=== PATIENT | female | born 2000 | race Caucasian/White ===

== ENCOUNTER 2025-02-14 | Day surgery (SDC) | payer BC, SELFPAY ==
[2025-02-12 15:26] VITALS: BMI 27.0
--- NOTE | 2025-02-12 15:34 | PC.NURSE ---
Report to the Outpatient Waiting Room, entrance under the green pavilion located off [facility], at time _1130_ on date _[phone]_. Planned Procedure Time: _130pm_.? Time changes happen often and if your time is changed the preop area will call you the afternoon before. - You and your visitor will be asked to self-screen and do not enter if you have any COVID symptoms. Please call surgeon if you need to reschedule. - A mask is optional within the hospital at this time. Patients may have clear liquids (water, carbonated beverages, clear teas, apple juice) until 3 hours prior to surgery with a maximum of 20 ounces. - No food from midnight until time of surgery and no smoking, or chewing tobacco (or any form of nicotine). No chewing gum, candy or mints. Take only the following medications with a SIP of water on the morning of surgery: ___BC pill DO NOT STOP ANY OF YOUR OTHER PRESCRIPTION MEDICATIONS PRIOR TO SURGERY EXCEPT THE FOLLOWING Hold all vitamins and supplements for 3 days per anesthesiologist. Medications to discontinue per physician Date to take last dose Please no make-up, nail comoran, hairspray, perfume, deodorant, or body powder the day of surgery.? No jewelry (including any body piercings) or valuables the day of surgery, leave them at home.? Please take a shower or bath the night before, or the morning of, surgery with an antibacterial soap.? Wear comfortable, loose fitting clothing.? - Jewelry must be removed prior to entering the operating room.? Rings and piercings that are not removed may be cut off. - The hospital will not accept responsibility for valuables.? - Please leave all valuables, including medications, at home the day of surgery. If you are going home after surgery, a licensed limousine driver must drive you home.? - NO public transportation without another adult if you receive anesthesia. - We recommend that an adult stay with you for 24 hours following discharge. - We also recommend that you do not drive, make important decision, drink alcoholic beverages, or take any drugs that were not prescribed by your health care provider for at least 24 hours after your discharge time. Follow any additional instructions given to you from your surgeon. Telephone instructions given to __Ninfa___and asked if any additional questions and then verbalized understanding. Patient advised to call surgeon office or pre surgery nurse liaison [phone] if any additional questions.
[2025-02-14] VITALS (9 sets, daily range): BP systolic 110–139; BP diastolic 67–82; PULSE 65–78; RESP 14–18; TEMP 36.4–36.7; O2SAT 94–100; BMI 26.9
--- OUTSIDE RECORDS SUMMARY | 2025-02-14 00:03 | XMS_ITS | Referral Summary ---
Author Organization [facility] [address] Address [address] [place] [address] Phone Care Team Providers Care Paster Hat Lining Name Role Phone No, Physician Unavailable Mckenzie Fishman NP Primary Care Provider [phone] Encounters Date Type Department Care Team Description 02/07/2025 Nurse Triage [facility] [address] [address] Mckenzie Fishman NP 01/02/2025 8:00 AM CDT Office Visit [facility] Care at [address] [place] [address] Ranjana Corona NP Acute bacterial pharyngitis (Primary Dx); Sore throat 01/01/2025 8:30 AM CDT Office Visit [facility] [address] [address] Marco Beckman MD Attention deficit hyperactivity disorder (ADHD), predominantly inattentive type (Primary Dx); Moderate episode of recurrent major depressive disorder (HCC); LUIS EDUARDO (generalized anxiety disorder); Migraine without aura and without status migrainosus, not intractable 12/19/2024 Results Follow-Up [facility] [address] [address] Alida Jean NP US Breast Right Limited 12/18/2024 3:13 PM CDT - 12/18/2024 11:59 PM CDT Hospital Encounter [facility] [address] [place] [address] Lump in upper inner quadrant of right breast Discharge Disposition: Discharge to home or self care 12/03/2024 2:00 PM CDT Office Visit [facility] [address] [address] Alida Jean NP Lump in upper inner quadrant of right breast (Primary Dx); Weight loss counseling, encounter for; Overweight (BMI 25.0-29.9) 12/02/2024 Nurse Triage [facility] [address] [address] Mckenzie Fishman NP from Last 3 Months Allergies No known active allergies Medications rizatriptan (MAXALT) 10 mg tabletIndications :Migraine Take 1 tablet (10 mg total) by mouth once as needed for migraine May repeat in 2 hours if unresolved. Do not exceed 30 mg in 24 hours. 9 tablet 1 3 Active buPROPion SR (WELLBUTRIN SR) 200 mg 12 hr tablet Take 1 tablet (200 mg total) by mouth every morning 4 Active escitalopram (LEXAPRO) 10 mg tablet Take 1 tablet (10 mg total) by mouth every morning 4 Active propranoloL (INDERAL) 10 mg tablet Take 1 tablet (10 mg total) by mouth as needed 4 Active traZODone (DESYREL) 50 mg tablet Take 1 tablet (50 mg total) by mouth as needed for sleep Active norethindrone-eth inyl estradiol-iron (Loestrin Fe 1.530, 28-Day,) 1.5 mg-30 mcg per tablet Take 1 tablet by mouth daily 5 Active lisdexamfetamine (VYVANSE) 20 mg capsuleIndication s:Attention-Defic it Hyperactivity Disorder Take 1 capsule (20 mg total) by mouth every morning for 14 days 14 capsule 5 02/21/20 25 Active lisdexamfetamine (VYVANSE) 20 mg capsuleIndication s:Attention-Defic it Hyperactivity Disorder Take 1 capsule (20 mg total) by mouth every morning for 14 days 14 capsule 5 01/23/20 25 Discontin ued(Reord er) lisdexamfetamine (VYVANSE) 20 mg capsuleIndication s:Attention-Defic it Hyperactivity Disorder Take 1 capsule (20 mg total) by mouth every morning for 14 days 14 capsule 5 02/07/20 25 Discontin ued(Reord er) Active Problems Problem Noted Date Diagnosed Date Attention deficit hyperactiv ity disorder (ADHD), predominantly inattentive type 01/01/2025 Assessment & Plan (01/01/2025 10:54 AM CDT): Not well controlled; patient has multiple signs and symptoms consistent with ADHD; patient reports prior diagnosis main; no relief with prior treatments including nonstimulant therapies Will give trial of Vyvanse 20 mg daily; given underlying anxiety, will start at low dose and advanced as tolerated Overweight (BMI 25.0-29.9) 12/03/2024 Assessment & Plan (12/03/2024 2:16 PM CDT): Encouraged heart healthy diet and lifestyle. Advised 150 min/week of aerobic exercise. Lump in upper inner quadrant of right breast 03/2025 Assessment & Plan (12/03/2024 2:16 PM CDT): Will get diagnostic mammogram further evaluate lump in breast and ensure no concerns. Will get CBC to ensure no infection noted. Orders: CBC with auto differential; Future Comprehensive metabolic panel; Future DIAGNOSTIC MAMMOGRAM BILATERAL W UZMA; Future LUIS EDUARDO (generalized anxiety disorder) 06/25/2024 Assessment & Plan (01/01/2025 10:55 AM CDT): Not well controlled; feeling more anxious; unclear if due to ADHD versus underlying anxiety disorder Continue bupropion 100 mg daily, Lexapro 10 mg daily, start Vyvanse 20 mg daily; continue propranolol 10 mg p.r.n. Assessment & Plan (06/25/2024 9:07 AM CDT): Stable, well controlled; follows with Psychiatry; treatment as above Moderate episode of recurrent major depressive d isorder 06/25/2024 Assessment & Plan (01/01/2025 10:54 AM CDT): Not well controlled; patient reports low motivation and sensation of burnout No relief with current medications Will start Vyvanse to help with focus and concentration which may help improve burnout as patient will be able to complete job task appropriately Continue bupropion 200 mg daily, decrease Lexapro to 10 mg daily Assessment & Plan (06/25/2024 9:07 AM CDT): Stable, well controlled; follows with psychiatry for management Continue bupropion 300 mg daily, Lexapro 15 mg daily Migraine without aura and wi thout status migrainosus, not intractable 02/06/2023 Assessment & Plan (01/01/2025 10:55 AM CDT): Not well controlled patient reports increased frequency of migraines, may be stress-induced Will continue to monitor Continue rizatriptan 10 mg p.r.n. Assessment & Plan (06/25/2024 9:07 AM CDT): Not well controlled; patient reports migraines occur at least twice per week; does not miss work; but unable to take relieving medications due to excess sedation; has not tolerated topiramate due to worsening depression with medication Will start Nurtec p.r.n. for migraines; if has improvement, may increase to every other day for prevention Assessment & Plan (02/06/2023 8:13 AM CDT): Maxalt 10 mg as needed for migraine Patient having severe headaches daily lasting approximately 2 hours each States these started about 1.5 weeks ago Patient states she stopped about 2 weeks ago She is 3 months Patient to follow-up if medication not helping Physical exam 02/06/2023 Assessment & Plan (02/06/2023 8:14 AM CDT): Pleasant 22-year-old female presents to establish care with new PCP. She states she is not been seen in [facility] . States last time she was seen she was still seeing a currency exchange specialist. She she is currently 3 months with a baby girl. CBC, CMP, A1c, lipid, TSH ordered. Patient will get her labs drawn today. We will call with results. Follow up as needed Resolved Problems Problem Noted Date Diagnosed Date Resolved Date Visit for screening 10/21/2022 02/06/2023 Strep pharyngitis 08/23/2021 02/06/2023 Abdominal pain 04/20/2015 02/06/2023 Failure to gain weight in pediatric patient 04/20/2015 02/06/2023 Lumbago 09/17/2014 02/06/2023 Strain of neck muscle 09/17/20142022 Immunizations Immunization Administration Dates Next Due DTaP 08/04/2003, 1,1999,10/18,1999 Influenza, Quadrivalent, Spl it, Preservative Free, Intramuscular 06/21/2019 Influenza, Trivalent, IM (MDV) 06/11/2013 Influenza, Unspecified 12/03/2024(Deferr ed: Patient Refused),06/25/2024(Deferred: Patient Refused),04/28/2024(Deferred: Patient Refused) MMR 02/26/2004,11/08/2000 Tdap 10/28/2022,07/28/2012 Social History Tobacco Use Types Packs/Day Years Used Date Smoking Tobacco: Former Cigarettes Vaping Smokeless Tobacco: Never Tobacco Cessation:Counseling Given: Not Answered [facility] Utilities Answer Date Recorded In the past 12 months has [employer], [employer], or water [place] threatened to shut off services in your home? No 06/25/2024 Humiliation, Afraid, Rape, and Kick questionnair e Answer Date Recorded Within the last year, have y ou been afraid of your partner or ex-partner? No 06/25/2024 Within the last year, have y ou been humiliated or emotionally abused in other ways by your partner or ex-partner? No Within the last year, have y ou been kicked, hit, slapped, or otherwise physically hurt by your partner or ex-partner? No 06/25/2024 Within the last year, have y ou been raped or forced to have any kind of sexual activity by your partner or ex-partner? No 06/25/2024 Social Connection and Isolation Panel [NHANES] A nswer Date Recorded In a typical week, how many times do you talk on the phone with family, friends, or neighbors? Once a week 06/25/2024 How often do you get together with friends or re latives? Once a week 06/25/2024 How often do you attend quaker or yarsani serv ices? Never 06/25/2024 Do you belong to any clubs o r organizations such as quaker groups, unions, fraternal or athletic groups, or school groups? No 06/25/2024 How often do you attend meet ings of the clubs or organizations you belong to? Never 06/25/2024 Are you , , di vorced, , never , or living with a partner? 06/25/2024 AUDIT-C Answer Date Recorded Q1: How often do you have a drink containing alc ohol? Monthly or less 06/25/2024 Q2: How many drinks containi ng alcohol do you have on a typical day when you are drinking? 3 or 4 06/25/2024 Q3: How often do you have si x or more drinks on one occasion? Never 06/25/2024 Overall Financial Resource Strain (CARDIA) Answe r Date Recorded How hard is it for you to pa y for the very basics like food, housing, medical care, and heating? Not hard at all 06/25/2024 PHQ-2 Answer Date Recorded PHQ-2 Total Score (If total score is 3 or more points, staff should administer the PHQ-9) 0 12/03/2024 [facility] of Occupat ional Health - Occupational Stress Questionnaire Answer Date Recorded Do you feel stress - tense, restless, nervous, or anxious, or unable to sleep at night because your mind is troubled all the time - these days? Very much 06/25/2024 Exercise Vital Sign Answer Date Recorde d On average, how many days pe r week do you engage in moderate to strenuous exercise (like a brisk walk)? 3 days 06/25/2024 On average, how many minutes do you engage in exercise at this level? 60 min 06/25/2024 Hunger Vital Sign Answer Date Recorded Within the past 12 months, y ou worried that your food would run out before you got the money to buy more. Never true 06/25/20 24 Within the past 12 months, t he food you bought just didn't last and you didn't have money to get more. Never true 06/25/2024 PRAPARE - Transportation Answer Date Re corded In the past 12 months, has l ack of transportation kept you from medical appointments or from getting medications? No 05/29 In the past 12 months, has l ack of transportation kept you from meetings, work, or from getting things needed for daily living? No 06/25/2024 PHQ-9 Answer Date Recorded PHQ-9 Total Score 3 06/25/2024 Housing Stability Vital Sign Answer Harpreet e Recorded In the last 12 months, was t here a time when you were not able to pay the mortgage or rent on time? No 06/25/2024 In the past 12 months, how m any times have you moved where you were living? 0 06/25/2024 At any time in the past 12 m [facility], were you homeless or living in a skilled nursing (including now)? No 06/25/2024 Personal Safety Answer Date Recorded Have you ever been in or are you currently in a harmful physical or emotional relationship or is someone making you feel afraid or unsafe? Denies 08/13/2024 Comments No Sex and Gender Information Value Date Recorded Sex Assigned at Not on file Legal Sex Female 12:44 AM [employer]OT [employer] Gender Identity Not on file Sexual Orientation Not on file Last Filed Vital Signs Vital Sign Reading Time Taken Comments Blood Pressure 108/60 01/02/2025 8:09 AM CDT Pulse 88 01/02/2025 8:09 AM CDT Temperature 36.6 C (97.9 F) 01/02/2025 8:09 AM CDT Respiratory Rate 20 01/02/2025 8:09 AM CDT Oxygen Saturation 98% 01/02/2025 8:09 AM CDT Inhaled Oxygen Concentration - - Weight 73.9 kg (163 lb) 01/02/2025 8:09 AM CDT Height 165.1 cm (5' 5) 01/02/2025 8:09 AM CDT Body Mass Index 27.12 01/02/2025 8:09 AM CDT Plan of Treatment Not on file Procedures Procedure Name Priority Date/Time Associated Diagnosis Comments POCT RAPID STREP Routine 01/02/2025 8:22 AM CDT Sore throat US BREAST RIGHT LIMITED Schedule Routine, Read Routine (OP Routine) 12/18/2024 3:33 PM CDT Lump in upper inner quadrant of right breast HEPATITIS C ANTIBODY Routine 06/25/2024 8:52 AM CDT Encounter for hepatitis C screening test for low risk patient from Last 3 Months or Most Recently Relevant to Health Maintenance Results * POCT rapid strep A (01/02/2025 8:22 AM CDT) Rapid Strep A, POC Negative Negative Swab 01/02/2025 8:22 AM CDT Ranjana Corona NP POINT OF CARE TEST ORDERABLES Final Result * US Breast Right Limited (12/18/2024 3:33 PM CDT) Anatomical Region Laterality Modality Breast Right Ultrasound 12/18/2024 3:39 PM CDT Impressions 12/18/2024 3:39 PM CDT No imaging findings to suggest malignancy are seen. Negative for inconclusive breast imaging studies should not deter biopsy if there are clinically suspicious palpable abnormalities. The patient may have mammography as per ACR guidelines. OVERALL FINAL ASSESSMENT: BI-RADS Category 1: Negative. Electronically signed by: Monica Denson M.D. Narrative 12/18/2024 3:39 PM CDT EXAMINATION: LIMITED RIGHT BREAST ULTRASOUND HISTORY: Previous palpable abnormality. Patient can no longer palpate. COMPARISON: None TECHNIQUE: Directed ultrasound evaluation of the RIGHT breast was performed. ULTRASOUND FINDINGS: In the area described as previously palpable by the patient, no cystic or solid masses are seen. Alida Jean EDUCATION AND OUTREACH COORDINATOR IMG MAMMO PROCEDURES Final Re sult * Hepatitis C antibody Blood (06/25/2024 8:52 AM CDT) Hep C Ab Nonreactive Nonreactive Comment: Interpretive Data Nonreactive: Antibodies to HCV not detected. Does NOT exclude the possibility of recent exposure to HCV. Equivocal: Equivocal for HCV antibodies. Supplemental molecular testing will be automatically performed to determine infection status in accordance with current CDC screening recommendations. Reactive: Positive for HCV antibodies. This may represent current or past HCV infection. Supplemental molecular testing will be automatically performed to determine current infection status in accordance with current CDC screening recommendations. Interpretive data was last revised on 2019. Testing performed by: [facility], [address] [place] [address], [place]., [address] Blood 06/25/2024 8:52 AM CDT 06/25/2024 3:18 PM CDT us Mckenzie Fishman NP LAB MICROBIOLOGY - GENERAL ORDER RAMIRO Final Result [facility] [facility] [address] [facility] Department [place] [address] from Last 3 Months or Most Recently Relevant to Health Maintenance Insurance [facility] CHOICE PLUS [facility] HMO/PPO Address: [facility] [address] [place] [address] [employer] SIG 200[address] ANTHEM ACCESS CHOICE [employer] [place] [address] ANTHEM ACCESS CHOICE ANTHEM ACCESS CHOICE ANTHEM ACCESS CHOICE Care Teams Paster Hat Lining Relationship Specialty Start Date End Date Mckenzie Fishman NP PCP - General Family Medicine 02/06/23 No, Physician 10/20/22
--- OUTSIDE RECORDS SUMMARY | 2025-02-14 00:03 | XMS_ITS | Clinical Summary ---
Author Organization [facility] Care Team Providers Care Assistant Designer Name Role Phone Provider, None Unavailable Unavailable Marco Beckman MD Primary Care Provider [phone] Allergies No known active allergies Medications Vit-Fe Fumarate-FA ( VITAMIN PO) Vitamin A ctive methylPREDNISol one (Medrol) 4 MG Tablet Therapy PackIndications :COVID-19 Use as per instructions on package. 21 Tablet 2 Active Additional Information Patient not taking.Reported on 11/12/2024 escitalopram (LEXAPRO) 10 MG Tablet TAKE 1 TABLET ORAL ONCE A DAY (IN THE MORNING) 4 Active BuPROPion HCl 200 MG TABLET SR 12 HR Take 1 Tablet by mouth every morning. Active traZODone (DESYREL) 50 MG Tablet TAKE 1 TABLET BY MOUTH EVERY DAY AT BEDTIME ( NEEDED) BREAK PILL IN HALF IF NEEDED Active propranolol (INDERAL) 10 MG Tablet take 1 tablet by mouth twice daily as needed Active traMADol (ULTRAM) 50 MG TabletIndicatio ns:Chest wall contusion, right, initial encounter Take 1 Tablet by mouth every 6 hours as needed for Moderate or more severe pain. 12 Tablet 5 Active Active Problems No known active problems Encounters Date Type Department Care Team Description 12/04/2024 5:10 PM CDT - 12/04/2024 7:44 PM CDT [facility] [address] [place] [address] Cole Trammell, PAC DUB (dysfunctional uterine bleeding) Discharge Disposition: Discharged to home or Selfcare 12/04/2024 Travel from Last 3 Months Immunizations Immunization Administration Dates Next Due DTAP VACCINE 08/04/2003, 1,1999, 000,1999 Influenza Vaccine, Quadrivalent, PF 06/21/2019 MMR Vaccine 02/26/2004,11/08/2000 TB Skin Test 06/19/2019 TDAP Vaccine 07/28/2012 Family History Medical History Relation Name Comments No Known Problems Brother No Known Problems Father Diabetes Maternal Grandmother No Known Problems Mother No Known Problems Sister Relation Name Status Comments Brother Father Maternal Grandfather Alive Maternal Grandmother Mother Paternal Grandfather Paternal Grandmother Sister Social History Tobacco Use Types Packs/Day Years Used Date Smoking Tobacco: Never Smokeless Tobacco: Never Tobacco Cessation:Counseling Given: Not Answered Alcohol Use Standard Drinks/Week Comments Not Currently 0 (1 standard drink = 0.6 oz pur e alcohol) AUDIT-C Answer Date Recorded Frequency of Alcohol Consumption Never 06/19/2019 Average Number of Drinks Not on file 019 Frequency of Binge Drinking Not on file 05/29 PHQ-2 Answer Date Recorded PHQ-2 Score 0 06/19/2019 Sexually Active Control Partners Comments Yes Male Condom Male Comments No Sex and Gender Information Value Date Recorded Sex Assigned at Not on file Legal Sex Female 2:38 PM CDT Gender Identity Not on file Sexual Orientation Not on file Last Filed Vital Signs Vital Sign Reading Time Taken Comments Blood Pressure 130/75 12/04/2024 7:08 PM CDT Pulse 74 12/04/2024 7:41 PM CDT Temperature 37.1 C (98.8 F) 12/04/2024 4:38 PM CDT Respiratory Rate 12 12/04/2024 7:41 PM CDT Oxygen Saturation 100% 12/04/2024 7:41 PM CDT Inhaled Oxygen Concentration - - Weight 69.4 kg (153 lb) 12/04/2024 4:38 PM CDT Height 165.1 cm (5' 5) 12/04/2024 4:38 PM CDT Body Mass Index 25.46 12/04/2024 4:38 PM CDT Plan of Treatment Health Maintenance Due Date Last Done Comments Hepatitis C Virus (HCV) Screening 1999 Human Papillomavirus (HPV) Immunization (1 - 3-dose series) 2014 Hepatitis B Immunization (1 of 3 - 19+ 3-dose series) 2018 Pap Smear 2020 SARS-COV-2 Immunization ( - 2023- season) 2024 Influenza Immunization (Season Ended) 2025 06/21/2019, 06/11/2013 DTaP/Tdap/Td Immunization (8 - Td or Tdap) 10/28/2032 10/28/2022, 07/28/2012, 08/04/2003, Additional history exists Respiratory Syncytial Virus (RSV) Immunization (Adult) (1 - 1-dose 75+ series) 2074 Meningococcal Immunization (ACWY) Aged Out No longer eligible based on patient's age to complete this topic Pneumococcal Immunization Combined Aged Out No longer eligible based on patient's age to complete this topic Rotavirus Immunization Aged Out No lo nger eligible based on patient's age to complete this topic Procedures Procedure Name Priority Date/Time Associated Diagnosis Comments CT ABDOMEN PELVIS W/ CONTRAST Stat with Interpretation 12/04/2024 6:14 PM CDT CBC WITH AUTO DIFFERENTIAL STAT 12/04/2024 4:47 PM CDT URINALYSIS REFLEX IF INDICATED BY ABNORMAL RESULTS STAT 12/04/2024 4:47 PM CDT CMP (COMPREHENSIVE METABOLIC PANEL) STAT 12/04/2024 4:47 PM CDT COMPLETE BLOOD COUNT (CBC) WITH DIFF STAT 12/04/2024 4:47 PM CDT POCT URINE HCG () STAT 12/04/2024 4:41 PM CDT from Last 3 Months Results * CT ABDOMEN PELVIS W/ CONTRAST (12/04/2024 6:14 PM CDT) Anatomical Region Laterality Modality Abdomen N/A Computed Tomogra phy 12/04/2024 7:03 PM CDT Impressions 12/04/2024 7:06 PM CDT IMPRESSION: 1. Descending and rectosigmoid colonic wall thickening could be under distension or colitis. Request clinical correlation. There is no bowel obstruction. 2. Mild prominence of the gallbladder wall. If there is concern for gallbladder pathology then please correlate with laboratory data and dedicated ultrasound. 3. Trace free fluid in the pelvis and additional findings as above. Narrative 12/04/2024 7:06 PM CDT EXAM DESCRIPTION: CT ABDOMEN PELVIS W/ CONTRAST REASON FOR STUDY: c/o lower abdominal pain bleeding x 4 days. HX of ovarian cyst and has had them rupture in the past. TECHNIQUE: CT scan of the abdomen and pelvis performed with intravenous and without oral contrast using helical scanning technique with dynamic intravenous contrast injection. Reconstructed coronal and sagittal MPR images reviewed. All images stored on PACS. Automated exposure control was used as a dose optimization technique for this examination. CONTRAST TYPE/DOSE: 76mL of IOPAMIDOL 76 % IV SOLN injected via Intravenous COMPARISON: CT abdomen and pelvis dated 08/13/2024, 09/11/2023 and 10/20/2019 FINDINGS: LOWER CHEST: No focal pneumonic consolidation. Linear atelectasis at the left lung base. LIVER: Enhances homogeneously. GALLBLADDER: There is no calcified gallstone. Questionable mild prominence of the gallbladder wall. SPLEEN: Enhances homogeneously, maximum craniocaudal dimensions of 12.5 cm. PANCREAS: Enhances homogeneously, no adjacent fluid collection. ADRENALS: Within normal limits. KIDNEYS/URINARY TRACT: The bilateral kidneys enhance symmetrically. Mild diffuse urinary bladder wall thickening could be under distension. Please correlate with urinalysis if there is concern for cystitis. GI: The evaluation is limited without oral contrast. Bowel pathology including wall thickening and inflammation could be obscured. Portions of the stomach, small bowel and large bowel are under distended for adequate evaluation. Air-filled nondilated appendix. Descending and rectosigmoid colonic wall thickening, under distension versus nonspecific colitis. There is no bowel obstruction. Trace free fluid in the pelvis. Significant free fluid in the abdomen or intraperitoneal free air. Scattered mesenteric lymph nodes as seen previously. In the left anterior pelvic fat is a 0.6 cm peripherally enhancing focus (series 2, image 129), new when compared to the previous CT dated 08/13/2024 and could reflect a small fat necrosis. RETROPERITONEUM: Bilateral external iliac lymph nodes with fatty hilum as seen previously. REPRODUCTIVE: The uterus and ovaries are seen. By history patient has vaginal bleeding. The need for transabdominal and transvaginal approach pelvic ultrasound as clinically indicated. VASCULATURE: The abdominal aorta is nonaneurysmal. MUSCULOSKELETAL: Levoconvex lumbar curvature. Lumbar vertebral body heights are maintained. THIS IS AN ELECTRONICALLY VERIFIED FINAL REPORT 12/04/2024 7:03 PM - Electronically signed by Bassem Keane D.O. AP: AP Report ID: [id number] Reading Location: [id number] Procedure Note Bassem Keane DO - 12/04/2024 EXAM DESCRIPTION: CT ABDOMEN PELVIS W/ CONTRAST REASON FOR STUDY: c/o lower abdominal pain bleeding x 4 days. HX of ovarian cyst and has had them rupture in the past. TECHNIQUE: CT scan of the abdomen and pelvis performed with intravenous and without oral contrast using helical scanning technique with dynamic intravenous contrast injection. Reconstructed coronal and sagittal MPR images reviewed. All images stored on PACS. Automated exposure control was used as a dose optimization technique for this examination. CONTRAST TYPE/DOSE: 76mL of IOPAMIDOL 76 % IV SOLN injected via Intravenous COMPARISON: CT abdomen and pelvis dated 08/13/2024, 09/11/2023 and 10/20/2019 FINDINGS: LOWER CHEST: No focal pneumonic consolidation. Linear atelectasis at the left lung base. LIVER: Enhances homogeneously. GALLBLADDER: There is no calcified gallstone. Questionable mild prominence of the gallbladder wall. SPLEEN: Enhances homogeneously, maximum craniocaudal dimensions of 12.5 cm. PANCREAS: Enhances homogeneously, no adjacent fluid collection. ADRENALS: Within normal limits. KIDNEYS/URINARY TRACT: The bilateral kidneys enhance symmetrically. Mild diffuse urinary bladder wall thickening could be under distension. Please correlate with urinalysis if there is concern for cystitis. GI: The evaluation is limited without oral contrast. Bowel pathology including wall thickening and inflammation could be obscured. Portions of the stomach, small bowel and large bowel are under distended for adequate evaluation. Air-filled nondilated appendix. Descending and rectosigmoid colonic wall thickening, under distension versus nonspecific colitis. There is no bowel obstruction. Trace free fluid in the pelvis. Significant free fluid in the abdomen or intraperitoneal free air. Scattered mesenteric lymph nodes as seen previously. In the left anterior pelvic fat is a 0.6 cm peripherally enhancing focus (series 2, image 129), new when compared to the previous CT dated 08/13/2024 and could reflect a small fat necrosis. RETROPERITONEUM: Bilateral external iliac lymph nodes with fatty hilum as seen previously. REPRODUCTIVE: The uterus and ovaries are seen. By history patient has vaginal bleeding. The need for transabdominal and transvaginal approach pelvic ultrasound as clinically indicated. VASCULATURE: The abdominal aorta is nonaneurysmal. MUSCULOSKELETAL: Levoconvex lumbar curvature. Lumbar vertebral body heights are maintained. THIS IS AN ELECTRONICALLY VERIFIED FINAL REPORT 12/04/2024 7:03 PM - Electronically signed by Bassem Keane D.O. AP: AP Report ID: [id number] Reading Location: [place] [address] IMPRESSION: 1. Descending and rectosigmoid colonic wall thickening could be under distension or colitis. Request clinical correlation. There is no bowel obstruction. 2. Mild prominence of the gallbladder wall. If there is concern for gallbladder pathology then please correlate with laboratory data and dedicated ultrasound. 3. Trace free fluid in the pelvis and additional findings as above. Cole Tongn PAC IMG CT ORDERABLES Fi nal Result * (ABNORMAL) URINALYSIS REFLEX IF INDICATED BY ABNORMAL RESULTS (12/04/2024 4:47 PM CDT) SPECIFIC GRAVITY 1.020 1.003 - 1.030 12/04/2024 5:48 PM CDT [facility] URINE PH 6.0 5.0 - 9.0 12/04/2024 5:48 PM CDT [facility] WBC ESTERASE 25 /ul(A) Negative 12/04/2024 5:48 PM CDT [facility] NITRITE Negative Negative 12/04/2024 5:48 PM CDT [facility] PROTEIN, RANDOM URINE 30 mg/dL(A) Negative 12/04/2024 5:48 PM CDT [facility] URINE GLUCOSE, QUAL Negative Negative 12/04/2024 5:48 PM CDT [facility] URINE KETONES Negative Negative 12/04/2024 5:48 PM CDT [facility] UROBILINOGEN Normal Normal mg/dL 12/04/2024 5:48 PM CDT [facility] URINE BLOOD 250 /uL(A) Negative tana/ul 12/04/2024 5:48 PM CDT [facility] URINALYSIS COLOR Eloisa 12/05/19 5:48 PM CDT [facility] URINALYSIS CLARITY Slightly Cloudy 12/04/2024 5:48 PM CDT [facility] WBC (Urine) 0-5 Negative, 0-5 /hpf 12/04/2024 5:48 PM CDT [facility] URINE RBC'S Packed(A) Negative, 0-2 /hpf 12/04/2024 5:48 PM CDT [facility] EPITHELIAL CELLS Negative /lpf 12/05/19 5:48 PM CDT [facility] BACTERIA, URINE Few(A) Negative /hpf 12/04/2024 5:48 PM CDT [facility] Urine URINE SPECIMEN OBTAINED BY CLEAN CATCH PROCEDURE / Unknown Non-Phlebotomy Collection / Unknown 12/04/2024 4:47 PM CDT 12/04/2024 4:58 PM CDT us Cole Trammell PAC URINE ORDERABLES Fin al Result [facility] [place] [address] * (ABNORMAL) CBC with Auto Differential (12/04/2024 4:47 PM CDT) WBC 8.21 4.00 - 12.00 10(3)/mcL 12/04/2024 5:00 PM CDT [facility] RBC 4.12 3.80 - 5.30 10(6)/mcL 12/04/2024 5:00 PM CDT [facility] HEMOGLOBIN (HGB) 12.8 12.0 - 15.8 g/dL 12/04/2024 5:00 PM CDT [facility] HEMATOCRIT (HCT) 38.4 36.0 - 47.0 % 12/04/2024 5:00 PM CDT [facility] MCV 93.2 82.0 - 96.0 fL 12/04/2024 5:00 PM CDT [facility] MCH 31.1 26.0 - 34.0 pg 12/04/2024 5:00 PM CDT [facility] MCHC 33.3 31.0 - 36.0 g/dL 12/04/2024 5:00 PM CDT [facility] PLATELET COUNT 228 140 - 440 10(3)/mcL 12/04/2024 5:00 PM CDT [facility] RDW 12.6 11.8 - 15.5 % 12/04/2024 5:00 PM CDT [facility] MPV 10.0 9.7 - 12.4 fL 12/04/2024 5:00 PM CDT [facility] NEUTROPHILS 48.9 47.0 - 73.0 % 12/04/2024 5:00 PM CDT [facility] LYMPHOCYTES 40.7 18.0 - 42.0 % 12/04/2024 5:00 PM CDT [facility] MONOCYTES 5.8 4.0 - 12.0 % 12/04/2024 5:00 PM CDT [facility] EOSINOPHILS 4.1 0.0 - 5.0 % 12/04/2024 5:00 PM CDT [facility] BASOPHILS 0.5 0.0 - 1.0 % 12/04/2024 5:00 PM CDT [facility] ABSOLUTE NEUTROPHILS 4.01 1.60 - 7.70 10(3)/mcL 12/04/2024 5:00 PM CDT [facility] ABSOLUTE LYMPHOCYTES 3.34(H) 1.30 - 3.20 10(3)/mcL 12/04/2024 5:00 PM CDT [facility] ABSOLUTE MONOCYTES 0.48 0.20 - 1.00 10(3)/mcL 12/04/2024 5:00 PM CDT [facility] ABSOLUTE EOSINOPHIL 0.34 0.00 - 0.40 10(3)/mcL 12/04/2024 5:00 PM CDT [facility] ABSOLUTE BASOPHILS 0.04 0.00 - 0.10 10(3)/mcL 12/04/2024 5:00 PM CDT [facility] NRBC PER 100 WBC 0 12/05/19 5:00 PM CDT [facility] Blood Venipuncture / Unknown 12/04/2024 4:47 PM CDT 12/04/2024 4:58 PM CDT us Cole Trammell PAC HEMATOLOGY ORDERABLE S Final Result [facility] [place] [address] * Comprehensive Metabolic Panel (Cmp) [id number] (12/04/2024 4:47 PM CDT) SODIUM 138 136 - 145 mmol/L 12/04/2024 5:24 PM CDT [facility] POTASSIUM 3.7 3.5 - 5.1 mmol/L 12/04/2024 5:24 PM CDT [facility] CHLORIDE 107 98 - 107 mmol/L 12/04/2024 5:24 PM CDT [facility] CO2, VENOUS 26 22 - 30 mmol/L 12/04/2024 5:24 PM CDT [facility] ANION GAP 8.7 <18.0 mmol/L 12/04/2024 5:24 PM CDT [facility] GLUCOSE 83 70 - 99 mg/dL 12/04/2024 5:24 PM CDT [facility] BUN 12 5 - 18 mg/dL 12/04/2024 5:24 PM CDT [facility] CREATININE, BLOOD 0.68 0.60 - 1.00 mg/dL 12/04/2024 5:24 PM CDT [facility] BUN/CREATININE RATIO 18 12 - 20 ratio 12/04/2024 5:24 PM CDT [facility] TOTAL PROTEIN 7.4 6.0 - 8.0 g/dL 12/04/2024 5:24 PM CDT [facility] ALBUMIN 4.3 3.5 - 5.0 g/dL 12/04/2024 5:24 PM CDT [facility] A/G RATIO 1.4 1.0 - 2.2 12/04/2024 5:24 PM CDT [facility] CALCIUM 9.2 8.7 - 10.5 mg/dL 12/04/2024 5:24 PM CDT [facility] T BILI 0.2 0.2 - 1.2 mg/dL 12/04/2024 5:24 PM CDT [facility] SGOT (AST) 19 <43 U/L 12/04/2024 5:24 PM CDT [facility] SGPT (ALT) 12 <56 U/L 12/04/2024 5:24 PM CDT [facility] ALKALINE PHOSPHATASE 59 40 - 150 U/L 12/04/2024 5:24 PM CDT [facility] GFR, ESTIMATED >60 >=60 12/04/2024 5:24 PM CDT [facility] Comment: Creatinine Clearance is the preferred criteria for selecting drug dose adjustments in renally impaired patients. The GFR is provided as additional pertinent clinical information. GFR is reported in mL/min/1.73 sq m. Calculation based on the Chronic Kidney Disease Epidemiology Collaboration (CKD- EPI) equation refit without adjustment for race. GFR, EST. >60 >=60 025 5:24 PM CDT [facility] GFR, EST. NONAFRICAN >60 >=60 12/04/2024 5:24 PM CDT [facility] Blood Venipuncture / Unknown 12/04/2024 4:47 PM CDT 12/04/2024 4:57 PM CDT Cole Trammell PAC CHEMISTRY ORDERABLES Final Result [facility] [place] [address] * POCT Urine HCG () (12/04/2024 4:41 PM CDT) POC URINE Negative POC URINE CONTROL Immigration Consultant Pass Urine 12/04/2024 4:41 PM CDT Cole Trammell PAC POINT OF CARE TESTIN G (MANUAL) Final Result from Last 3 Months Insurance [facility] Care Teams Assistant Designer Relationship Specialty Start Date End Date Marco Beckman MD [address] [place] [address] PCP - General Family Medicine 10/30/24 Provider, None [place] 08/13/24
--- OUTSIDE RECORDS SUMMARY | 2025-02-14 00:03 | XMS_ITS | Clinical Summary ---
Author Organization [facility] [address] Address [address] [place] [address] Phone Care Team Providers Care Neonatal Intensive Care Unit Nurse Name Role Phone No, Physician Unavailable Mckenzie Fishman NP Primary Care Provider Allergies No known active allergies Medications rizatriptan [...] sleep Active norethindrone-eth inyl estradiol-iron (Loestrin Fe 1.01/24, 28-Day,) 1.5 mg-30 mcg per tablet Take [...] states she is not been seen in y ears . States last time she was seen she was still seeing a crew leader/control room operator. She she is currently 3 months with [...] 09/17/2014 02/06/2023 Strain of neck muscle 09/17/20142022 Encounters Date Type Department Care Team Description 02/07/2025 Nurse Triage [facility] [phone] Mckenzie Fishman NP 01/02/2025 8:00 AM CDT Office Visit [facility] at [address] [place], [place] [id number] Ranjana Corona NP Acute bacterial pharyngitis (Primary Dx); Sore throat 01/01/2025 8:30 AM CDT [facility] Visit [facility] [address] [phone] Marco Beckman MD Attention deficit hyperactivity disorder (ADHD), predominantly inattentive type (Primary Dx); Moderate episode of recurrent major depressive disorder (HCC); LUIS EDUARDO (generalized anxiety disorder); Migraine without aura and without status migrainosus, not intractable 12/19/2024 Results [facility]-Up [facility] [address] [phone] Alida Jean NP US Breast Right Limited 12/18/2024 3:13 PM CDT - 12/18/2024 11:59 PM CDT Hospital Encounter [facility] [address] [place] [address] Lump in upper inner quadrant of right breast Discharge Disposition: Discharge to home or self care 12/03/2024 2:00 PM CDT Office Visit [facility] [address] [place] [phone] Alida Jean NP Lump in upper inner quadrant of right breast (Primary Dx); Weight loss counseling, encounter for; Overweight (BMI 25.0-29.9) 12/02/2024 Nurse Triage [facility] [address] [place] [phone] Mckenzie Fishman NP from Last 3 Months Immunizations Immunization Administration Dates Next Due DTaP 08/04/2003, 1,1999,10/18,1999 Influenza, Quadrivalent, Spl it, Preservative Free, Intramuscular 06/21/2019 Influenza, Trivalent, IM (MDV) 06/11/2013 Influenza, Unspecified 12/03/2024(Deferr ed: Patient Refused),06/25/2024(Deferred: Patient Refused),04/28/2024(Deferred: Patient Refused) MMR 02/26/2004,11/08/2000 Tdap 10/28/2022,07/28/2012 Surgical History Surgery Date Site/Laterality Comments MOUTH SURGERY SECTION Medical History Medical History Date Comments No pertinent past medical history Family History Medical History Relation Name Comments No Known Problems Father No Known Problems Maternal Grandfather No Known Problems Maternal Grandmother Anemia Mother Family history of anemia - (Added by TW Conv) Anxiety disorder Mother Anxiety - ( Added by TW Conv) Thyroid disease Mother No Known Problems Paternal Grandfather No Known Problems Paternal Grandmother Relation Name Status Comments Father Alive Maternal Grandfather Maternal Grandmother Mother Alive Paternal Grandfather Paternal Grandmother Social History Tobacco Use Types Packs/Day Years Used Date Smoking Tobacco: Former Cigarettes Vaping Smokeless Tobacco: Never Tobacco Cessation:Counseling Given: Not Answered [facility] Utilities Answer Date Recorded In the past 12 months has [employer], gas, oil, or water [employer] threatened to shut off services in your [...] week 06/25/2024 How often do you attend jainism or jehovah's witness serv ices? Never 06/25/2024 Do you belong to any clubs o r organizations such as jainism groups, unions, fraternal or athletic groups, or [...] staff should administer the PHQ-9) 0 12/03/2024 [facility] Occupat ional Health - Occupational Stress [...] any time in the past 12 m [facility], were you homeless or living in a fci (including now)? No 06/25/2024 Personal Safety Answer Date Recorded Have you ever been in or are you currently in a harmful physical or emotional relationship or is someone making you feel afraid or unsafe? 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 Gender Identity Not on file Sexual Orientation Not on file Obstetrics History Para Term AB IAB SAB Ectopic Multiple Livin g Live Births 1 0 0 0 0 0 0 0 Date Outcome GA Total Labor Labor/2nd/3rd Weight Sex Type Anes PTL Chelsey A1 A5 Name Clin Last Filed Vital Signs Vital Sign Reading [...] 01/02/2025 8:09 AM CDT Plan of Treatment Health Maintenance Due Date Last Done Comments Varicella Vaccines (1 of 2 - 13+ 2-dose series) 2012 HPV Vaccines (1 - 3-dose series) 2014 Cervical Cancer Screening 04/11/2025 04/11/2024 Influenza Vaccine (Season Ended) 2025 06/21/2019, 06/11/2013 Regular Well Visit/Exam 18-64 06/25/2025 06/25/2024, 02/06/2023 Depression Screening 12/03/2025 12/03/2024, 06/25/2024, 02/06/2023 DTaP/Tdap/Td Vaccine (8 - Td or Tdap) 10/28/2032 10/28/2022, 07/28/2012, 08/04/2003, Additional history exists Hepatitis B Screening Completed 06/25/2024 Hepatitis C Screening Completed 06/25/2024 Pneumococcal vaccine <65 Aged Out No longer eligible based on [...] or solid masses are seen. Alida Jean NP IMG MAMMO PROCEDURES Final Re sult * [...] last revised on 2019. Testing performed by: [facility], [address] [place] [address], [place]., [address] Blood 06/25/2024 8:52 AM CDT 06/25/2024 3:18 PM CDT us Mckenzie Fishman NP LAB MICROBIOLOGY - GENERAL ORDER RAMIRO Final Result [facility] ([facility]) [address] [facility] [place] [address] from Last 3 Months or Most Recently Relevant to Health [place] [address] [facility] [id number] ANTHEM ACCESS CHOICE ANTHEM ACCESS CHOICE [place]THE[place] [address] ANTHEM ACCESS CHOICE ANTHEM ACCESS CHOICE Care Teams Neonatal Intensive Care Unit Nurse Relationship Specialty Start Date End Date Mckenzie Fishman NP PCP - General Family Medicine 02/06/23 No, Physician 10/20/22
--- OUTSIDE RECORDS SUMMARY | 2025-02-14 00:03 | XMS_ITS | Encounter Summary ---
Author Organization [facility] Healthcare Address [address] [place] [address] Care Team Providers Care Performance Improvement Consultant Name Role Phone No, Physician Unavailable Mckenzie Fishman NP Primary Care Provider [phone] Encounter Details Date Type Department Care Team (Late st Contact Info) Description 12/19/2024 Results Follow-Up [facility] [address] [place] [address] Alida Jean NP [address] [facility] [place] [address] US Breast Right Limited Social History Tobacco Use Types Packs/Day Years Used Date Smoking Tobacco: Former Cigarettes Vaping Smokeless Tobacco: Never [facility] Utilities Answer Date Recorded In the past 12 months has [facility] [email or web address], gas, oil, or water [employer] threatened to shut off services in your [...] week 06/25/2024 How often do you attend adventism or muslim serv ices? Never 06/25/2024 Do you belong to any clubs o r organizations such as adventism groups, unions, fraternal or athletic groups, or [...] staff should administer the PHQ-9) 0 12/03/2024 [facility] of Occupat ional Health - Occupational Stress [...] any time in the past 12 m [facility], were you homeless or living in a senior living (including now)? No 06/25/2024 Personal Safety Answer Date Recorded Have you ever been in or are you currently in a harmful physical or emotional relationship or is someone making you feel afraid or unsafe? 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
--- OUTSIDE RECORDS SUMMARY | 2025-02-14 00:03 | XMS_ITS | Data Portability ---
Author Organization [facility] [place] Address [address] [place] [address] Assessment No assessment recorded. Plan of Treatment Reminders Order Date Submit Date Provider Last Modified By Organization Details Last Modified Time Details Appointments SURG Lap Ovarian Cystectom y 2024 01:30P Yaima REHMAN MD Not available Not available Not available SURG POST OP 2024 11:15A Yaima REHMAN MD Not available Not available Not available Lab 17-hydrox yprogeste tevin, QN, serum [address] (Lab), [address] [place], [address], 12/31/2024 16:27:17 dhea-sulf ate, serum [address] (Lab), [address] [place], [address], 12/31/2024 16:27:18 estradiol , serum [address] (Lab), [address] [place], [address], 12/31/2024 16:27:18 FSH (follicle -stimulat ing hormone), serum [address] (Lab), [address] [place], [address], 12/31/2024 16:27:18 HbA1c (hemoglob in A1c), blood [address] (Lab), [address], [place], [address], 12/31/2024 16:27:18 lh (luteiniz ing hormone), serum [address] (Lab), [address] [place], [address], 12/31/2024 16:27:18 progester one, serum [address] (Lab), [address] [place], [address], 12/31/2024 16:27:18 prolactin , serum [address] (Lab), [address] [place], [address], 12/31/2024 16:27:18 shbg (sex hormone-b inding globulin) , serum [address] (Lab), [address] [place], [address], 12/31/2024 16:27:18 TSH, serum or plasma [address] (Lab), [address] [place], [address], 12/31/2024 16:27:18 testoster one free/test osterone total, ratio, serum [address] (Lab), [address] [place], [address], 12/31/2024 16:27:18 17-hydrox yprogeste tevin, QN, serum [address] (Lab), [address] [place], [address], 12/31/2024 16:27:18 dhea-sulf ate, serum [address] (Lab), [address] [facility], [place], [address], 12/31/2024 16:27:18 estradiol , serum [address] (Lab), [address] [facility], [place], [address], 12/31/2024 16:27:19 FSH (follicle -stimulat ing hormone), serum [address] (Lab), [address] [facility], [place], [address], 12/31/2024 16:27:19 HbA1c (hemoglob in A1c), blood [address] (Lab), [address] [facility], [place], [address], 12/31/2024 16:27:19 lh (luteiniz ing hormone), serum [address] (Lab), [address] [facility], [place], [address], 12/31/2024 16:27:19 progester one, serum [address] (Lab), [address] [place], [address], 12/31/2024 16:27:19 prolactin , serum [address] (Lab), [address] [place], [address], 12/31/2024 16:27:19 shbg (sex hormone-b inding globulin) , serum [address] (Lab), [address] [facility], [place], [address], 12/31/2024 16:27:19 TSH, serum or plasma [address] (Lab), [address] [facility], [place], [address], 12/31/2024 16:27:19 testoster one free/test osterone total, ratio, serum [address] (Lab), [address] [facility], [place], [address], 12/31/2024 16:27:19 Referral None recorded. Procedures None recorded. Surgeries laparosco pic ovarian cystectom y (SURG) 2024 025 [email or web address] [facility], [address], [place], [address], 02/12/2025 16:01:27 Imaging US, pelvis 2024 [address]25 [address], [address], [place], [address], 01/01/2025 15:59:48 US, transvagi nal [address] [facility] [address], [address], [place], [address], 01/01/2025 15:59:48 Medication Orders None recorded. Patient TargetsNo targets recorded. Patient InstructionsNo instructions recorded. Reason for Referral None Reported. Results Created Date Observation Date Name Description Value Unit Range Abnormal Flag Note LastModifiedBy Organization Detail LastModifiedTime 12/20/1912/19/2024 PROLA CTIN prolactin, total 7.37 NG/mL 4.79-2 3.30 This assay was perfo rmed using [employer] ratio n reage nts and test kits. Value s obtai addy with other assay metho ds or kits canno t be used inter tsai eably . Not Available [facility] (Lab) [address] [place], [address], 01/01/2025 18:05:47 12/20/19 25 12/19/2024 ESTRA DIOL estradiol 30.7 pg/mL This assay was perfo rmed using [employer] ratio n reage nts and test kits. Value s obtai addy with other assay metho ds or kits canno t be used inter [facility] . Femal e Estra diol Range s: Folli cular phase 12.4- 233 pg/mL Ovula tion phase 41.0- 398 pg/mL Lutea l phase 22.3- 341 pg/mL Postm enopa usal <5-13 8 pg/mL Healt hy Pregn ant Women 1st Trime ster 154-3 243 pg/mL 2nd Trime ster 1561- 22864 pg/mL 3rd Trime ster 8525- >3000 0 pg/mL Not Available [facility] (Lab) [address] [place], [address], 01/01/2025 18:05:47 12/20/19 25 12/19/2024 PROGE STERO NE progesterone 0.22 NG/mL This assay was perfo rmed using [employer] ratio n reage nts and test kits. Value s obtai addy with other assay metho ds or kits canno t be used inter [facility] . Femal e Proge stero ne Range s: Folli cular phase 0.06- 0.89 ng/mL Ovula tion phase 0.12- 12.00 ng/mL Lutea l phase 1.83- 23.90 ng/mL Postm enopa usal <0.05 -0.13 ng/mL Healt hy Pregn ant Women 1st Trime ster 11.0- 44.30 2nd Trime ster 25.40 -83.3 0 3rd Trime ster 58.70 -214. 00 Not Available [facility] (Lab) [address] [place], [address], 01/01/2025 18:05:48 12/20/19 25 12/19/2024 FSH FSH 7.4 mIU/m L This assay was perfo rmed using [employer] ratio n reage nts and test kits. Value s obtai addy with other assay metho ds or kits canno t be used inter [facility] . Femal es Folli cular : 3.5-1 2.5 mIU/m L Ovula tion: 4.7-2 1.5 mIU/m L Lutea l: 1.7-7 .7 mIU/m L Postm enopa use: 25.8- 134.8 mIU/m L Not Available [facility] (Lab) [address] [facility], [place], [address], 01/01/2025 18:05:48 12/20/19 25 12/19/2024 LH (LUTE NIZIN G HORMO NE) LH 17.6 mIU/m L This assay was perfo rmed using [employer] ratio n reage nts and test kits. Value s obtai addy with other assay metho ds or kits canno t be used inter [facility] . Femal es Mid-F ollic ular: 2.4-1 2.6 mIU/m L Mid-C ycle: 14.0- 95.6 mIU/m L Mid-L uteal : 1.0-1 1.4 mIU/m L Postm enopa use: 7.7-5 8.5 mIU/m L Not Available [facility] (Lab) [address] , [place], [address], 01/01/2025 18:05:48 12/20/19 25 12/19/2024 DHEA SULFA TE DHEA-sulfate 254 ug/dL Femal e Range s Age(y ) Range (ug/d L) 10-15 34-28 0 15-20 65-36 8 20-25 148-4 07 25-35 99-34 0 35-45 61-33 7 45-55 35-25 6 55-65 19-20 5 65-75 9-246 > 75 12-15 4 Not Available [facility] (Lab) [address] , [place], [address], 01/01/2025 18:05:49 12/20/19 25 12/19/2024 TSH, REFLE X FREE T4 TSH 1.07 uIU/m L 0.30-5 .33 Not Available [facility] (Lab) [address] [facility], [place], [address], 01/01/2025 18:05:49 12/20/19 25 12/19/2024 HUMAN SEX HORMO NE ALANA NG GLOBU MANDEEP sex hormone binding globulin 22.2 nmole s/L 18.2-1 35.5 Not Available [facility] (Lab) [address] [facility], [place], [address], 01/01/2025 18:05:49 12/20/19 25 12/19/2024 HEMOG LOBIN A1C hemoglobin A1C 5.0 % 4.0-5. 6 The Ameri can Diabe giana Assoc iatio n recom mends that a prima ry goal of thera py shoul d be a HBA1C of < 7% and that physi cians shoul d reeva luate the treat ment regim en in patie nts with HBA1C value s consi stent ly > 8%. <5.7% Meghan l 5.7 - 6.4% Incre ased risk for diabe gaina >=6.5 % Diagn ostic of diabe giana <7.0% Goal of thera py >8.0% Actio n sugge sted Not Available [facility] (Lab) [address] [facility], [place], [address], 01/01/2025 18:05:50 12/20/19 25 12/19/2024 TESTO STERO NE, FREE( DIALY SIS) AND TOTAL (LC/M S/MS) testosterone , total 25 NG/dL 2-45 For addit ional infor denisa garcia e refer to http: //frida concepcionque stdia gnost ics.c om/fa q/ Total Testo stero neLCM SMSFA Q165 (This link is being provi ded for infor jaxson louis/ educa lonny l purpo ses only. ) This test was devel oped and its tom tical perfo rmanc e teri cteri stics have been deter mined by [employer] [facility] [place], [place]. It has not been clear ed or appro nichole by the U.S. Food and Drug Admin istra tion. This assay has been valid ated pursu ant to the CLIA regul ation s and is used for clini boogie purpo ses. Not Available [facility] (Lab) [address] [facility], [place], [address], 01/01/2025 18:05:50 12/20/1912/19/2024 TESTO STERO NE, FREE( DIALY SIS) AND TOTAL (LC/M S/MS) testosterone , free 4.3 pg/mL 0.1-6. 4 This test was devel oped and its tom tical perfo rmanc e teri cteri stics have been deter mined by [employer] [facility] souza [place], [place]. It has not been clear ed or appro nichole by the U.S. Food and Drug Admin istra tion. This assay has been valid ated pursu ant to the CLIA regul ation s and is used for clini boogie purpo ses. Perfo rming Organ izati on Infor matio n: Site ID: [id number] Name: Pablo Francesca [email or web address] [email or web address] israel Addre ss: [id number] [place], [place] Direc tor: Sina Parson MD PhD Not Available [facility] (Lab) [address] [place], [address], 01/01/2025 18:05:50 12/20/1912/19/2024 17-OH PROGE STERO NE 17-hydroxypr ogesterone, lc/MS/MS 35 NG/dL Adult Femal e Refer ence Range s for 17-Hy droxy proge stero ne: Pre-M enopa usal Mid Folli cular : 23-10 2 ng/dL Pre-M enopa usal Surge : 67-34 9 ng/dL Pre-M enopa usal Mid Lutea l: 139-4 31 ng/dL Postm enopa usal Phase : < or = 45 ng/dL Pregn josey: First Trime ster: 78-45 7 ng/dL Secon d Trime ster: 90-35 7 ng/dL Third Trime ster: 144-5 78 ng/dL This test was devel oped and its tom tical perfo rmanc e teri cteri stics have been deter mined by [employer] [facility]. It has not been clear ed or appro nichole by the FDA. This assay has been valid ated pursu ant to the CLIA regul ation s and is used for clini boogie purpo ses. Perfo rming Organ izati on Infor matio n: Site ID: [id number] Name: [employer] ostroseanne s/[employer] [facility] [place] , Addre ss: [id number] [facility] [place] [address] Direc tor: Leia talavera MD,Ph D,MEGHA Not Available [facility] (Lab) [address] [facility], [place], [address], 01/01/2025 18:05:50 01/01/20 25 12/31/2024 US, pelvi s No observ ation record ed. [email or web address] [place] [address], [place], [address], 12/31/2024 16:04:01 01/01/20 25 12/31/2024 US, trans vagin al No observ ation record ed. [email or web address] [place] [address], [place], [address], 12/31/2024 16:04:10 01/01/20 25 12/31/2024 US, pelvi s No observ ation record ed. [email or web address] [address], [place], [address], 12/31/2024 22:09:44 Result Notes None recorded. Problems Name Problem SNOMED Code Status Onset Date Resolution Date Notes Provider Name and Address Organization Details Recorded Time 06554388 Completed 202112/03/2022 Stacy Christy [facility] 3 10:39:12 Cystic fibrosis 235188952 Completed + fob - testing is neg Stacy Christy [facility] 3 10:39:07 Headache 44587421 Completed stable, - txed Stacy Christy [facility] 3 10:39:07 COVID-19 [id number] Completed +08/19 - ASA and growth u/s Stacy Christy [facility] 3 10:39:07 Pre-eclam psia 250670999 Completed 2022 24hr TP 592 on 10/[address] [facility] 3 10:39:08 Problem Notes None recorded. Procedures Surgical History Date Name Laterality Status Provider Name and Address Organization Details Recorded Time 03/29/20 23 DILATION AND CURETTAGE WITH HYSTEROSCOPY (SURG) completed [facility] 03/30/2023 10:33:32 03/29/20 23 DILATION AND CURETTAGE WITH HYSTEROSCOPY (SURG) completed [facility] 03/30/2023 10:33:16 11/03/19 23 section completed [facility] 03/27/2023 12:40:26 04/06/20 22 Date of Last Pap Smear completed [facility] 04/06/2022 16:15:38 Imaging Results None recorded. Procedure Notes None recorded. Medical Equipment None Reported. Allergies No known drug allergies Medications Name Sig Start Date Stop Date Status Note LastModified by Organization Details LastModified Time amoxicillin 500 mg capsule TAKE 1 CAPSULE BY MOUTH TWICE A DAY FOR 10 DAYS 03/15 completed Not Available Not Available Not Available buspirone 5 mg tablet TAKE 1 TABLET BY MOUTH TWICE A DAY WITH MEALS FOR 30 DAYS 08/31 completed Not Available Not Available Not Available bupropion HCl SR 150 mg tablet,12 hr sustained-r elease TAKE ONE TABLET BY MOUTH DAILY (IN THE MORNING) 10/17 completed Not Available Not Available Not Available trazodone 50 mg tablet TAKE ONE TABLET BY MOUTH ONCE DAILY AT BEDTIME NEEDED BREAK PILL IN HALF IF NEEDED active Not Available Not Available No t Available azithromyci n 250 mg tablet TAKE 2 TABLETS BY MOUTH ON DAY 1 AND THEN TAKE 1 TABLET BY MOUTH ONCE A DAY ON DAY 2 THROUGH DAY 5 04/06 completed Not Available Not Available Not Available ibuprofen 800 mg tablet TAKE 1 TABLET BY MOUTH EVERY 8 HOURS 09/27 completed Not Available Not Available Not Available fluconazole 150 mg tablet TAKE 1 TABLET BY MOUTH NOW REPEAT IN 3 DAYS 12/15 completed Not Available Not Available Not Available benzonatate 200 mg capsule TAKE 1 CAPSULE BY MOUTH THREE TIMES DAILY NEEDED FOR COUGH FOR UP TO 14 DAYS 09/27 completed Not Available Not Available Not Available hydrocodone 5 mg-acetamin ophen 325 mg tablet TAKE 1 TO 2 TABLETS BY MOUTH EVERY 4 HOURS NEEDED FOR PAIN. MAX 8 TABS/DAY 04/11 completed Not Available Not Available Not Available metronidazo le 0.75 % (37.5 mg/5 gram) vaginal gel Insert 1 applicato rful every day by vaginal route at bedtime for 5 days. 03/27 completed Not Available Not Available Not Available ondansetron HCl 4 mg tablet Take 1 tablet by mouth every 4-6 hours as needed for nausea 03/15 completed Not Available Not Available Not Available rizatriptan 10 mg tablet TAKE 1 TABLET BY MOUTH ONCE NEEDED FOR MIGRAINE MAY REPEAT IN 2 HRS IF UNRESOLVE D MAX 3/24 HOURS 03/15 completed Not Available Not Available Not Available sertraline 100 mg tablet TAKE 1 TABLET BY MOUTH EVERY DAY IN THE MORNING 04/11 completed Not Available Not Available Not Available Ferrex 150 mg iron capsule 03/15 completed Not Available Not Available Not Available penicillin V potassium 500 mg tablet TAKE 1 TABLET BY MOUTH TWICE DAILY FOR 10 DAYS 04/06 completed Not Available Not Available Not Available topiramate 25 mg tablet TAKE 1 TABLET BY MOUTH EVERY DAY 10/17 completed Not Available Not Available Not Available metronidazo le 500 mg tablet TAKE 1 TABLET BY MOUTH EVERY 12 HOURS FOR 7 DAYS 12/15 completed Not Available Not Available Not Available tramadol 50 mg tablet TAKE 1 TABLET BY MOUTH EVERY 6 HOURS NEEDED FOR MODERATE OR SEVERE PAIN 02/12 completed Not Available Not Available Not Available bupropion HCl SR 100 mg tablet,12 hr sustained-r elease TAKE 1 TABLET BY MOUTH ONCE A DAY IN THE MORNING 04/11 completed Not Available Not Available Not Available oxycodone-a cetaminophe n 5 mg-325 mg tablet 03/15 completed Not Available Not Available Not Available propranolol 10 mg tablet TAKE 1 TABLET BY MOUTH TWICE DAILY NEEDED 02/12 completed Not Available Not Available Not Available amoxicillin 875 mg tablet TAKE 1 TABLET BY MOUTH TWICE A DAY FOR 10 DAYS 02/12 completed Not Available Not Available Not Available triamcinolo ne acetonide 0.1 % topical ointment APPLY THIN COAT TO AFFECTED AREA TWICE A DAY 12/15 completed Not Available Not Available Not Available dexamethaso ne 4 mg tablet TAKE 3 TABLETS BY MOUTH DAILY FOR 2 DAYS 04/06 completed Not Available Not Available Not Available promethazin e 25 mg tablet TAKE 1 TABLET BY MOUTH EVERY 6 HOURS NEEDED FOR NAUSEA - 1ST LINE OR VOMITING FOR UP TO 7 DAYS 03/15 completed Not Available Not Available Not Available docusate sodium 100 mg capsule 03/15 completed Not Available Not Available Not Available sertraline 25 mg tablet TAKE 1 TABLET EVERY DAY BY MOUTH AT DINNER FOR 14 DAYS. 03/15 completed Not Available Not Available Not Available gabapentin 100 mg capsule TAKE 1 CAPSULE BY MOUTH UP TO 3 TIMES A DAY NEEDED 10/17 completed Not Available Not Available Not Available ibuprofen 600 mg tablet 03/15 completed Not Available Not Available Not Available methylpredn isolone 4 mg tablets in a dose pack TAKE BY MOUTH DIRECTED ON INSIDE OF PACKAGE 09/27 completed Not Available Not Available Not Available ondansetron 4 mg disintegrat ing tablet 08/31 completed Not Available Not Available Not Available sertraline 50 mg tablet TAKE 1 TABLET BY MOUTH EVERY DAY AT DINNER FOR 30 DAYS 08/15 /2024 completed Not Available Not Available Not Available doxycycline hyclate 100 mg tablet Take 1 tablet twice a day by oral route. 08/31 completed Not Available Not Available Not Available amoxicillin 875 mg-potassiu m clavulanate 125 mg tablet TAKE 1 TABLET BY MOUTH EVERY 12 HOURS FOR 7 DAYS 04/06 completed Not Available Not Available Not Available bupropion HCl SR 200 mg tablet,12 hr sustained-r elease TAKE 1 TABLET BY MOUTH EVERY MORNING active Not Available Not Available No t Available escitalopra m 10 mg tablet TAKE 1 TABLET BY MOUTH EVERY MORNING active Not Available Not Available No t Available atomoxetine 25 mg capsule 08/31 completed Not Available Not Available Not Available atomoxetine 40 mg capsule TAKE 1 CAPSULE BY MOUTH EVERY DAY IN THE MORNING 04/11 completed Not Available Not Available Not Available cyclobenzap rine 5 mg tablet 03/15 completed Not Available Not Available Not Available escitalopra m 5 mg tablet TAKE 1 TABLET BY MOUTH EVERY MORNING 12/19 completed Not Available Not Available Not Available nitrofurant oin monohydrate /macrocryst als 100 mg capsule TAKE 1 CAPSULE BY MOUTH EVERY 12 HOURS FOR 5 DAYS 10/16 completed Not Available Not Available Not Available Vitamin 03/15 completed Not Available Not Available Not Available aripiprazol e 2 mg tablet TAKE 1 TABLET BY MOUTH EVERY DAY 04/11 completed Not Available Not Available Not Available lisdexamfet amine 20 mg capsule TAKE 1 CAPSULE (20 MG TOTAL) BY MOUTH DAILY IN THE MORNING FOR 14 DAYS active Not Available Not Available No t Available clindamycin 1 % topical gel, once daily APPLY TO AFFECTED AREA TOPICALLY EVERY DAY 10/17 completed Not Available Not Available Not Available Negin Fe 1.530 (28) 1.5 mg-30 mcg (21)/75 mg (7) tablet TAKE 1 TABLET BY MOUTH EVERY DAY active Not Available Not Available No t Available Vitals Date Recorded Body height Body mass index (BMI) Body weight Systolic blood pressure Diastolic blood pressure Provider Name and Address Organization Details Last Updated DateTime 12/19/2024 162.26 cm 28.1 kg/m2 43104.56 g 109 mm[Hg] 74 mm[Hg] Annamarie Riley [facility] 04/24/202 5 17:34:17 Date Recorded Body height Body mass index (BMI) Body weight Systolic blood pressure Diastolic blood pressure Provider Name and Address Organization Details Last Updated DateTime 02/12/2025 162.26 cm 27.7 kg/m2 46066.37 g 131 mm[Hg] 85 mm[Hg] Annamarie Osvaldo [facility] 14:59:46 Social History Question Answer Notes LastModified by Organizat ion Details LastModified Time Tobacco Smoking Status Former Smoker Shyann Ratlifftz null, [facility] 04/06/2022 16:16:46 If You Are , What Was Your Level Of Alcohol Consumption Prior To ? Occasional Information not available 04/06/2022 Are You Blind Or Do You Have Difficulty Seeing? No [email or web address] Information not available 04/06/2022 What Is Your Level Of Caffeine Consumption? Occasional [email or web address] Information not available 04/06/2022 In The 14 Days Before Symptom Onset, Have You Had Close Contact With A Laboratory-confir med COVID-19 While That Case Was Ill? No [email or web address] Information not available 04/06/2022 In The 14 Days Before Symptom Onset, Have You Had Close Contact With A Person Who Is Under Investigation For COVID-19 While That Person Was Ill? No [email or web address] Information not available 04/06/2022 Have You Been To An Area Known To Be High Risk For COVID-19? No [email or web address] Information not available 04/06/2022 Are You Deaf Or Do You Have Serious Difficulty Hearing? No [email or web address] Information not available 04/06/2022 What Type Of Diet Are You Following? REGULAR [email or web address] Information not available 04/06/2022 Do You Use Your Seat Belt Or Car Seat Routinely? Yes [email or web address] Information not available 04/06/2022 Do You Have Smoke And Carbon Monoxide Detectors In Your Home? Yes [email or web address] Information not available 04/06/2022 Do You Use Sunscreen Routinely? Yes [email or web address] Information not available 04/06/2022 Has Tobacco Cessation Counseling Been Provided? No [email or web address] Information not available 04/06/2022 Do You Have Difficulty Walking Or Climbing Stairs? No [email or web address] Information not available 04/06/2022 Sex: Unknown Functional Status Question Answer Note LastModified by Organizat ion Details LastModified Time Do you use any illicit or recreational drugs? No [email or web address] Information not available 04/06/2022 Do you or have you ever used any other forms of tobacco or nicotine? Yes [email or web address] Information not available 04/06/2022 What is your level of alcohol consumption? None [email or web address] Information not available 04/06/2022 Are you able to walk? YESWOREST [email or web address] Information not available 04/06/2022 Are you able to care for yourself? Yes [email or web address] Information not available 04/06/2022 Do you have difficulty dressing or bathing? No [email or web address] Information not available 04/06/2022 Do you or have you ever used e-cigarettes or vape? Current user of electronic cigarettes [email or web address] Information not available 04/06/2022 What is your exercise level? Occasional [email or web address] Information not available 04/06/2022 Mental Status Question Answer Note LastModified by Organization D etails LastModified Time Do you feel stressed (tense, restless, nervous, or anxious, or unable to sleep at night)? [id number] [email or web address] Information not available 04/06/2022 Family History Relationship Description Onset Age of this Age Resolved Age Notes LastModified by Organization Details LastModified Time Father No current problems or disability Not available 03/28 19:57:35 Mother No current problems or disability [email or web address] Not available 03/28 19:57:35 Medical History Condition Response Allergies (Food, seasonal, environmental ) N Other N Blood Transfusion N Breast Cancer N Drug/Latex Allergies/Reactions N Dermatologic Disorders N Lung Disease N Defects or Inherited Disease N Breast Problem N Gestational Diabetes N Hematologic disorders N Anesthesia Complications N History of STI N Deep Vein Thrombosis N Polycystic ovary syndrome N Anxiety Disorder Y Autoimmune disease N Arthritis N Polyps N Infertility N Acid Reflux (GERD) N History of abnormal pap N Cancer N Varicosities N Stroke N Neurologic/Epilepsy N Endometriosis N High Cholesterol N Fibromyalgia N Headaches N Kidney Disease N Heart Problems N Thyroid Problems N Kidney or Bladder Problems N GI Problems N Eating Disorder N Anemia N Art (IVF or FET) N Psychiatric Illness Y Ovarian Cancer N Diabetes N Pulmonary (TB, Asthma) N Hepatitis/Liver Disease N No Past Medical History N Eczema N Urinary Tract Infection N Abuse/Domestic Violence N Asthma N Trauma/Violence N Depression/ depression Y Heart Disease N Pre-Eclampsia N Hypertension N Osteoporosis N Thrombophilias N Gynecological History Statement/Question Response Abnormal Pap N Flow Heavy Date of LMP 01/25/2025 Was last menstrual period normal N STIs/STDs N HPV Vaccine Y Duration of Flow (days) 14 Current Control Method Partner Vas ectomy Are cycles usually normal Y Frequency of Cycle (Q days) 28 Sexually Active? Y Menses Monthly Y Date of DEXA bone scan Date of Last Pap Smear 04/06/2022 Sexual Problems? N LMP Definite Obstetrics History GPAL:G 1 P 1 0 0 1 Type Value Full Term 1 Living 1 Total 1 Past Encounters Encounter ID Performer Location Encounter Start Date Encounter Closed Date Diagnosis/Indication Diagnosis SNOMED-CT Code Diagnosis ICD10 Code Diagnosis Note [id number] Stevie Rehman MD [facility] [address],[place] [address] 04/06/2022 15:09:42 04/06/2022 15:51:16 [id number] [facility] [address],[place] [address] 04/06/2022 15:11:29 04/06/2022 16:42:02 Gynecologic examination 88358172 Z01.419 Amenorrhea 44969093 N91. 2 [id number] Stevie Rehman MD [facility] [address],[place] [address] 05/09/2022 09:53:34 05/09/2022 10:58:15 screening [id number] Z36.82 [id number] Stevie Rehman MD [facility] [address],[place] [address] 05/11/2022 15:57:27 05/11/2022 18:20:47 Routine care [id number] Z34.01 [id number] Stevie Rehman MD [facility] [address],[place] [address] 06/09/2022 10:27:43 06/09/2022 11:08:08 [id number] Stevie Rehman MD [facility] [address],[place] [address] 06/09/2022 10:28:17 06/09/2022 12:22:11 Routine care [id number] Z34.01 [id number] MD Nandini Ramesh [address],[place] [address] 07/07/2022 11:27:44 07/07/2022 12:34:35 screening for malformation [id number] Z36.3 [id number] Stevie Rehman MD [facility] [address],[place] [address] 07/07/2022 11:28:38 07/07/2022 13:30:59 Routine care [id number] Z34.01 [id number] Stevie Rehman MD [facility] [address],[place] [address] 08/04/2022 11:21:53 08/04/2022 16:34:18 screening [id number] Z36.2 Z3A.24 [id number] Conchita Sellers [facility] [address],[place] [address] 08/04/2022 13:09:00 08/06/2022 12:55:21 [id number] Stevie Rehman MD [facility] [address],[place] [address] 08/30/2022 16:37:39 08/30/2022 17:33:53 COVID-19 [id number] U07.1 O36.63X0 Z3A.28 [id number] Conchita Sellers [facility] [address],[place] [address] 09/05/2022 11:20:42 09/05/2022 13:23:35 Pruritic disorder [id number] L29.9 [id number] MD Nandini Ramesh [address],[place] [address] 09/27/2022 13:55:42 09/27/2022 15:05:51 COVID-19 [id number] U07.1 Z86.16 Z3A.32 [id number] [facility] [address],[place] [address] 09/27/2022 14:35:36 09/27/2022 15:05:35 Routine care [id number] Z34.93 [id number] [facility] [address],[place] [address] 10/10/2022 16:38:26 10/10/2022 17:45:29 Routine care [id number] Z34.93 [id number] Stevie Rehman MD [facility] [address],[place] [address] 10/13/2022 16:26:48 10/13/2022 17:33:03 Pre-eclampsia 650100332 O14.93 [id number] Stevie Rehman MD [facility] [address],[place] [address] 10/20/2022 15:52:37 10/20/2022 16:48:32 Pre-eclampsia 259173014 O14.93 Z86.16 Z3A.35 [id number] [facility] [address],[place] [address] 10/20/2022 16:35:01 10/21/2022 16:31:42 [id number] Stevie Rehman MD [facility] [address],[place] [address] 10/24/2022 16:24:23 10/24/2022 17:41:10 -induced hypertension [id number] O13.9 [id number] [facility] [address],[place] [address] 10/24/2022 16:27:51 10/24/2022 18:16:02 Routine care [id number] Z34.93 [id number] Stevie Rehman MD [facility] [address],[place] [address] 10/27/2022 16:26:34 10/27/2022 17:17:13 Pre-eclampsia [id number] O14.93 Z86.16 Z3A.35 [id number] Stevie Rehman MD [facility] [address],[place] [address] 11/14/2022 17:49:54 11/15/2022 13:33:56 Routine care [id number] Z34.01 this patient is a 22-year-ol d 1 P1 who is 1 week postop from a delivery. Her incisions clean dry and intact. She is doing well. Her baby is doing well. Blood pressures are normal. She was delivered for preeclamps ia nonreactiv e NST. Are nonreassur ing heart tones. She will follow-up in 3 weeks for routine visit. [id number] Stevie Rehman MD [facility] [address],[place] [address] 12/05/2022 14:13:31 12/05/2022 14:54:00 care [id number] Z39.2 this patient is a 22-year-ol d female presents for follow-up. She is breastfeed ing, she has has very little bleeding. Baby is doing well. She is doing well. She has had sex once. She does not want contracept ion. Her should be getting a vasectomy shortly. She will follow-up in 2 months for well-woman exam. [id number] LEIGHA Koo [facility] [address],[place] [address] 03/15/2023 14:47:33 03/15/2023 15:37:46 Vaginitis 03302473 N76.0 suspect yeastvagin itis panel sentSTI testing declinedrx sent, R/B/A discussedv ulvar care guidelines discussedB C declinedRT C in 1 year or sooner if needed Time spent in visit is a total of 20 mins with at least 50% of visit consisting of counseling and review of plan of care. [id number] Stevie Rehman MD [facility] [address],[place] [address] 03/24/2023 14:51:29 03/27/2023 12:29:34 Retained placenta 702315021 O72.0 this patient is a 22-year-ol d female who presents for cramping and passing tissue. She appears to be passing membranes from her 5 months ago. She has some pictures tissue. It appeared to be membranes and possible parts of placenta. She is now still dischargin g this particular matter and continues to cramp have of the and with pain. We got a pelvic ultrasound after she gave me that history. There may be some retained products still. There is some hyperechoi c matter at this fundus of the uterus. We spent more than 40 minutes face-to-fa ce. We talked about her symptoms, her ultrasound results. I shared pictures with her. Talked about treatment options we talked about of treatment plan in detail. We agreed follow-up in 4 days/ 3 days and to repeat ultrasound in 2 talk about D and C if she continues to cramp and have pain. she blood for many weeks after the . She has not have a menses for 5 months after her . She was not breastfeed ing. [id number] Stevie Rehman MD [facility] [address],[place] [address] 03/24/2023 15:27:40 03/24/2023 15:51:11 Abnormal uterine bleeding [id number] 9100 N93.9 [id number] Stevie Rehman MD [facility] [address],[place] [address] 03/27/2023 11:52:30 03/27/2023 12:26:10 Abnormal uterine bleeding [id number] 9100 N93.9 [id number] Stevie Rehman MD [facility] [address],[facility] [place] [address] 03/27/2023 11:53:01 03/27/2023 14:17:22 Retained placenta 389137821 O72.0 this patient is a 22-year-ol d female with retained placenta. We have agreed to perform hysterosco py D&C. She understand s the risks, benefits, and alternativ es. She has completed the informed consent process and is ready to proceed. [id number] Stevie Rehman MD [facility] [address],[place] [address] 03/30/2023 10:01:39 03/30/2023 10:02:50 [id number] Stevie Rehman MD [facility] [address],[place] [address] 04/05/2023 17:05:15 04/05/2023 18:03:27 Abnormal uterine bleeding [id number] 9100 N93.9 This patient is a 22-year-ol d female who presents for abnormal uterine bleeding. This is follow-up. She had hysterosco py D&C. The sampling was normal. She feels better, bleeding is diminished , we will observe and treat accordingl y. [id number] LEIGHA Koo [facility] [address],[place] [address] 08/31/2023 16:38:04 08/31/2023 17:21:14 Vaginal lesion [id number] N94.89 Normal exam todaysx's have resolvedur ine cx sent for recent urinary symptomsen couraged to return if sx's return in the future for exam Time spent in visit is a total of 18mins with at least 50% of visit consisting of counseling and review of plan of care. [id number] DOLLY MOSHER MD [facility] [address],[place] [address] 04/11/2024 12:20:29 04/11/2024 13:40:48 Urinary symptoms 489954312 R39.9 - reports urinary symptoms x1 week- UA and urine culture sent Pain in pelvis 91191077 R10.2 - discussed management options including PFPT which patient would like to pursue- referral sent today Gynecologi c examination 62231342 Z01.419 Well woman care- Cervical cancer screening: Pap smear not indicated (next 2024- Breast cancer screening: mammogram not indicated- Colon cancer screening: does not qualify- HPV immunizati on: received- STD testing: declined- hereditary cancer screening: does not qualify for testing [id number] Stevie Rehman MD [facility] [address],[place] [address] 10/17/2024 15:57:47 10/17/2024 16:41:26 Vaginitis 94116728 N76.0 Discussed empirical treatment with metronidaz ole for suspected BV based on reported symptoms and physical exam findings.D iscussed vulvar care guidelines in addition to laundry/sk in irritants to avoid.Anjum mmended boric acid capsules - insert one capsule vaginally at H.S. after period, intercours e, and/or with symptoms.R x for triamcinol one oint 0.1% to apply to vulva BID PRN for irritation .Vaginitis panel sent for BV/zev /trich.Uri ne dipstick negative. Urine culture sent to rule out urinary tract infection. Venereal d isease screening 257159623 Z11.3 Pt requested STI testing.Di scussed the various types of STDs, related symptoms and the potential consequenc es (including effects on fertility) of STD infections . Reviewed ways to limit exposure and prevention techniques . [id number] Stevie Rehman MD [facility] [address],[place] [address] 12/16/2024 15:17:54 12/16/2024 18:27:57 [id number] Stevie Rehman MD [facility] [address],[place] [address] 12/19/2024 17:08:43 12/20/2024 08:01:11 Pain in pelvis 49135143 R10.2 Cyst of ovary 27454994 N 83.209 Menorrhagia 122822142 N9 2.0 24-year-ol d female with intermitte nt pelvic pain. It is severe. It is located in the right side of the pelvis. She has had recurrent ovarian cyst. She was recently emergency department . She was thought to have an ovarian cyst that ruptured. We discussed ovarian cyst. We discussed the etiology, natural history, treatment of ovarian cyst. We talked about the evaluation of ovarian cyst. We agreed to completed the evaluation with the pelvic ultrasound . She also has some symptoms of PCOS and has had some irregular heavy bleeding. We will obtain PCOS labs and pelvic ultrasound . She will return after the ultrasound . I spent over 30 minutes on her care in total. We talked about PCOS in detail. We talked about weight management in detail as well. [id number] Stevie Rehman MD [facility] [address] [address] 12/31/2024 15:25:34 12/31/2024 16:12:25 Pain in pelvis 38987890 R10.2 [id number] Stevie Rehman MD [facility] [address],[place] [address] 01/30/2025 16:29:02 02/03/2025 09:00:38 Cyst of ovary 58751138 N83.209 24-year-ol d female with an episode of pelvic pain. She has seen in the ER. She was diagnosed with a ruptured ovarian cyst. Follow up ultrasound s performed at our office. There is no existing cyst at this time. Her pain has resolved. We agreed to observe for problem. [id number] Stevie Rehman MD [facility] [address],[place] [address] 02/12/2025 14:47:43 02/12/2025 15:21:09 Cyst of left ovary [id number] N83.202 24-year-ol d female with pelvic pain and left ovarian cyst. We agreed to perform left ovarian cystectomy , laparoscop ic. She understand s risks, benefits, and alternativ es. She has completed the informed consent process and is ready to proceed. Health Concerns Section Related Observation LastModified by Organization Detai ls LastModified Time None Recorded Concern Status LastModified by Organization Details LastModified Time None Recorded Advance Directives Directive None Recorded Payers Insurance Date Sequence Insurance Name Policy Number Policy You Covered Member ID You Member ID Guarantor Name 04/10/2024 PAYMENT PLAN Ninfa Abernathy 11/13/2024 PAYMENT PLAN Ninfa Abernathy 01/08/2025 PAYMENT PLAN Ninfa Abernatyh 01/24/2025 PAYMENT PLAN Ninfa Abernathy 01/24/2025 PAYMENT PLAN Ninfa Abernathy 04/01/2022 1 BRAVO Abernathy [id number] Ninfa Abernathy 11/03/2022 2 [id number] [facility] [employer] [facility] Pricila Abernathy [id number] Ninfa Abernathy 02/11/2025 1 [facility] (PPO) [id number] Ashish Savage [id number] Ninfa Abernathy 05/31/2023 PAYMENT PLAN Ninfa Abernathy 03/15/2023 PAYMENT PLAN Ninfa Abernathy 03/16/2023 PAYMENT PLAN Ninfa Abernathy Notes Date Note Type Note Provider Name and Address Organization Details Recorded Time 12/19/2024 text/html 24-year-old todd holland with intermittent pelvic pain. It is severe. It is located in the right side of the pelvis. She has had recurrent ovarian cyst. She was recently emergency department. She was thought to have an ovarian cyst that ruptured. We discussed ovarian cyst. We discussed the etiology, natural history, treatment of ovarian cyst. We talked about the evaluation of ovarian cyst. We agreed to completed the evaluation with the pelvic ultrasound. She also has some symptoms of PCOS and has had some irregular heavy bleeding. We will obtain PCOS labs and pelvic ultrasound. She will return after the ultrasound. I spent over 30 minutes on her care in total. We talked about PCOS in detail. We talked about weight management in detail as well. Stevie Rehman MD [address], [place], [address], [facility] 12/19/2024 22:10:47 01/30/2025 text/html 24-year-old todd holland with an episode of pelvic pain. She has seen in the ER. She was diagnosed with a ruptured ovarian cyst. Follow up ultrasounds performed at our office. There is no existing cyst at this time. Her pain has resolved. We agreed to observe for problem. Stevie Rehman MD [address], [place], [address], [facility] 02/02/2025 22:39:51 02/12/2025 text/html This patient is a 24-year-old female presents for follow-up on ovarian cyst and pelvic ultrasound. She has marked pelvic pain associated with the cyst. She has recurrent ovarian cyst. We discussed the etiology, natural history, treatment of ovarian cyst. We spent over 30 minutes on her care in total. She understands observation is an option. Her pain is such that she would like definitive treatment. We agreed to proceed with laparoscopic left ovarian cystectomy. The patient understands the procedure. The procedure was described to the patient in great detail. the patient also understands the risks. The risks were also explained in detail. She understands that injuries May occur during surgery. She understands these injuries can result in hospitalization, more surgery, and severe illness. She understands there is risk of hemorrhage and infection. Stevie Rehman MD [address], [place], [address], [facility] 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 Status 05/11/20 22 1 141 CLOSED Fetus Data First Name Last Name Admitted to NICU Weight (g) Sex Living Outcome Pediatric Complications Fetus ID Race Codes Race Delivery Type true Full Term [id number] Primary Problems Problem Notes Problem Name Start Date End Date Resolution Snomed Code Not e Pre-eclampsia 10/11/2022 [id number] 24hr TP 592 on 10/11 Headache 67185355 stable, - txed COVID-19 594979415 +08/19 - A SA and growth u/s Cystic fibrosis 602571727 + fo b - testing is neg Sebastián Calculation Initial Sebastián Date Initial Exam Date Initial Exam Provider Initial Ultrasound Date Last Menstrual Period Date Ultra Sound Weeks Gestation 11/14/2022 05/11/2022 04/06/2022 02/07/2022 7 Eighteen To Twenty Week Sebastián Update Ultra Sound Date Fundal Height At Umbil Quickening Date Ultra Sound Latest Weeks Gestation Final Sebastián Confirmed By Final Sebastián Confirmed Date Final Sebastián Date Ultra Sound Latest Days Gestation 0 [email or web address] 05/11/2022 11/22/19 23 0 Pre-matthew Flowsheet Flowsheet Date 05/11/2022 Mccartney Score Blood Edema Fundus Height Fundus Units Glucose Ketones Leukocytes Nitrite Labor Signs Protein Cervic Dilation Cervic Effacement Cervic Station 13 Type Weight in lbs Pre/Post Dialysis Refused Weight 141.094874792273 BP Diastolic BP Location Tested BP Systolic BP Type 64 R arm 121 sitting Fetus Heart Rate Present A 164 Fetus Movement Comments This patient is a 21-year-ol d 1 at 30 weeks gestation who presents for initial care. She has no complaints today. She has an unremarkable medical, surgical, obstetric history. She is on vaccinated but is been infected with COVID twice. She was given a flu shot and Tdap recommendations. She will begin routine Flowsheet Date 05/11/2022 Mccartney Score Blood Edema Fundus Height Fundus Units Glucose Ketones Leukocytes Nitrite Labor Signs Protein Cervic Dilation Cervic Effacement Cervic Station Type Weight in lbs Pre/Post Dialysis Refused BP Diastolic BP Location Tested BP Systolic BP Type Fetus Heart Rate Present Fetus Movement Comments Flowsheet Date 06/09/2022 Mccartney Score Blood Edema Fundus Height Fundus Units Glucose Ketones Leukocytes Nitrite Labor Signs Protein Cervic Dilation Cervic Effacement Cervic Station Type Weight in lbs Pre/Post Dialysis Refused BP Diastolic BP Location Tested BP Systolic BP Type Fetus Heart Rate Present Fetus Movement Comments Flowsheet Date 06/09/2022 Mccartney Score Blood Edema Fundus Height Fundus Units Glucose Ketones Leukocytes Nitrite Labor Signs Protein Cervic Dilation Cervic Effacement Cervic Station 16 Type Weight in lbs Pre/Post Dialysis Refused Weight 146.911820721246 BP Diastolic BP Location Tested BP Systolic BP Type 58 R arm 112 sitting Fetus Heart Rate Present A 145 Fetus Movement Comments Given recommendations on rosangela ating headache, I recommended Excedrin tension headache, she will call us if the headache is not adequately treated. Flowsheet Date 07/07/2022 Mccartney Score Blood Edema Fundus Height Fundus Units Glucose Ketones Leukocytes Nitrite Labor Signs Protein Cervic Dilation Cervic Effacement Cervic Station Type Weight in lbs Pre/Post Dialysis Refused BP Diastolic BP Location Tested BP Systolic BP Type Fetus Heart Rate Present Fetus Movement Comments Flowsheet Date 07/07/2022 Mccartney Score Blood Edema Fundus Height Fundus Units Glucose Ketones Leukocytes Nitrite Labor Signs Protein Cervic Dilation Cervic Effacement Cervic Station 20 Type Weight in lbs Pre/Post Dialysis Refused Weight 153.740041438887 BP Diastolic BP Location Tested BP Systolic BP Type 71 R arm 116 sitting Fetus Heart Rate Present A 143 Fetus Movement Comments headaches have been treated effectively with Excedrin tension headache. Father the baby is negative for cystic fibrosis carrier status. Otherwise no complaints. No active problems to repeat anatomy for right ventricular outflow tract and ductus arteriosus. Flowsheet Date 08/04/2022 Mccartney Score Blood Edema Fundus Height Fundus Units Glucose Ketones Leukocytes Nitrite Labor Signs Protein Cervic Dilation Cervic Effacement Cervic Station neg none none trace Type Weight in lbs Pre/Post Dialysis Refused Weight 165.439409237890 BP Diastolic BP Location Tested BP Systolic BP Type 76 123 Fetus Heart Rate Present Fetus Movement A Yes Comments Doing well. Anatomy complete today. Will await recommendations. Encouraged flu shot. Plan to return in 4 weeks for routine ob and gtt. Flowsheet Date 08/04/2022 Mccartney Score Blood Edema Fundus Height Fundus Units Glucose Ketones Leukocytes Nitrite Labor Signs Protein Cervic Dilation Cervic Effacement Cervic Station Type Weight in lbs Pre/Post Dialysis Refused BP Diastolic BP Location Tested BP Systolic BP Type Fetus Heart Rate Present Fetus Movement Comments Seen by Conchita. Flowsheet Date 08/30/2022 Mccartney Score Blood Edema Fundus Height Fundus Units Glucose Ketones Leukocytes Nitrite Labor Signs Protein Cervic Dilation Cervic Effacement Cervic Station Type Weight in lbs Pre/Post Dialysis Refused BP Diastolic BP Location Tested BP Systolic BP Type Fetus Heart Rate Present Fetus Movement Comments Flowsheet Date 09/05/2022 Mccartney Score Blood Edema Fundus Height Fundus Units Glucose Ketones Leukocytes Nitrite Labor Signs Protein Cervic Dilation Cervic Effacement Cervic Station neg none 31 none trace Type Weight in lbs Pre/Post Dialysis Refused Weight 167.793059154359 BP Diastolic BP Location Tested BP Systolic BP Type 75 121 Fetus Heart Rate Present A 149 Fetus Movement A Yes Comments Doing well. Does have increa sed itching all over for the last few days. Will add bile acids and cmp today. Plan to return in 2 weeks for routine visit and ultrasound. Pt did have covid over [place] but is much better now. Flowsheet Date 09/27/2022 Mccartney Score Blood Edema Fundus Height Fundus Units Glucose Ketones Leukocytes Nitrite Labor Signs Protein Cervic Dilation Cervic Effacement Cervic Station Type Weight in lbs Pre/Post Dialysis Refused BP Diastolic BP Location Tested BP Systolic BP Type Fetus Heart Rate Present Fetus Movement Comments Flowsheet Date 09/27/2022 Mccartney Score Blood Edema Fundus Height Fundus Units Glucose Ketones Leukocytes Nitrite Labor Signs Protein Cervic Dilation Cervic Effacement Cervic Station neg none none trace Type Weight in lbs Pre/Post Dialysis Refused Weight 173.820773178326 BP Diastolic BP Location Tested BP Systolic BP Type 80 127 Fetus Heart Rate Present Fetus Movement A Yes Comments Doing well. U/S today. Encou raged tdap and to schedule pre admit. Also encouraged to look for pedi. Flowsheet Date 10/10/2022 Mccartney Score Blood Edema Fundus Height Fundus Units Glucose Ketones Leukocytes Nitrite Labor Signs Protein Cervic Dilation Cervic Effacement Cervic Station neg trace none trace Type Weight in lbs Pre/Post Dialysis Refused Weight 180.689097466983 BP Diastolic BP Location Tested BP Systolic BP Type 89 155 80 140 Fetus Heart Rate Present Fetus Movement A Yes Comments patient is having headaches, swelling, and nausea.BP elevated today. Denies h/a, v/d, or e/p. Did have headache all day yesterday. Noticed increased swelling in her ankles and hands. Sent to L&D for PIH evaluation. Discussed ghtn/pih with patient and gave precautions. Will await results from testing and determine plan of care. Flowsheet Date 10/13/2022 Mccartney Score Blood Edema Fundus Height Fundus Units Glucose Ketones Leukocytes Nitrite Labor Signs Protein Cervic Dilation Cervic Effacement Cervic Station Type Weight in lbs Pre/Post Dialysis Refused BP Diastolic BP Location Tested BP Systolic BP Type Fetus Heart Rate Present Fetus Movement Comments Flowsheet Date 10/20/2022 Mccartney Score Blood Edema Fundus Height Fundus Units Glucose Ketones Leukocytes Nitrite Labor Signs Protein Cervic Dilation Cervic Effacement Cervic Station Type Weight in lbs Pre/Post Dialysis Refused BP Diastolic BP Location Tested BP Systolic BP Type Fetus Heart Rate Present Fetus Movement Comments Flowsheet Date 10/20/2022 Mccartney Score Blood Edema Fundus Height Fundus Units Glucose Ketones Leukocytes Nitrite Labor Signs Protein Cervic Dilation Cervic Effacement Cervic Station neg none none trace Type Weight in lbs Pre/Post Dialysis Refused Weight 182.831403446471 BP Diastolic BP Location Tested BP Systolic BP Type 83 138 Fetus Heart Rate Present Fetus Movement A Yes Comments Doing well. Has headache. St ates nothing helps it go away. This is not new. Denies v/d. Does have occasional ruq discomfort but resolves with position change. Denies currently. We have talked alot about pre eclampsia and the importance of continued evaluation and timing of delivery. Flowsheet Date 10/20/2022 Mccartney Score Blood Edema Fundus Height Fundus Units Glucose Ketones Leukocytes Nitrite Labor Signs Protein Cervic Dilation Cervic Effacement Cervic Station Type Weight in lbs Pre/Post Dialysis Refused BP Diastolic BP Location Tested BP Systolic BP Type Fetus Heart Rate Present Fetus Movement Comments Flowsheet Date 10/24/2022 Mccartney Score Blood Edema Fundus Height Fundus Units Glucose Ketones Leukocytes Nitrite Labor Signs Protein Cervic Dilation Cervic Effacement Cervic Station Type Weight in lbs Pre/Post Dialysis Refused BP Diastolic BP Location Tested BP Systolic BP Type Fetus Heart Rate Present Fetus Movement Comments Flowsheet Date 10/24/2022 Mccartney Score Blood Edema Fundus Height Fundus Units Glucose Ketones Leukocytes Nitrite Labor Signs Protein Cervic Dilation Cervic Effacement Cervic Station neg trace none trace Type Weight in lbs Pre/Post Dialysis Refused Weight [id number] BP Diastolic BP Location Tested BP Systolic BP Type 92 146 Fetus Heart Rate Present Fetus Movement A Yes Comments Doing well. Does still have headaches. Did improve with Benadryl. Otherwise no complaints. Plan MIL at 37 weeks. PIH precautions given and again encouraged to go in if any concerns or changes in status. Flowsheet Date 10/27/2022 Mccartney Score Blood Edema Fundus Height Fundus Units Glucose Ketones Leukocytes Nitrite Labor Signs Protein Cervic Dilation Cervic Effacement Cervic Station Type Weight in lbs Pre/Post Dialysis Refused BP Diastolic BP Location Tested BP Systolic BP Type 98 157 80 136 Fetus Heart Rate Present Fetus Movement Comments Pt in office for NST only. I nitial automatic BP elevated, but repeat manual BP WNL. Pt denies any PIH sxs. Pt has IOL schd 3/. Gave PIH precautions and told pt if she has any onset of sxs to go to L&D for eval before IOL. Ok per KP. Pt verbalized understanding. LAUREN teague Flowsheet Date 11/14/2022 Mccartney Score Blood Edema Fundus Height Fundus Units Glucose Ketones Leukocytes Nitrite Labor Signs Protein Cervic Dilation Cervic Effacement Cervic Station Type Weight in lbs Pre/Post Dialysis Refused Weight 154.445863453238 BP Diastolic BP Location Tested BP Systolic BP Type 79 R arm 127 sitting Fetus Heart Rate Present Fetus Movement Comments Menstrual History Last Menstrual Date Menses Monthly On Bcp Conception Prior Menses Frequency Hcg Plus Date Menarche Onset Age 0602/07/2022 Genetic Screening And Infection History Question Response Note Mental Retardation/Autism false Patient's Age Will Be 35 Years Or Older At Estim ated Date of Delivery false Thalassemia (German, Venezuelan, Mediterranean, Or Background): MCV < 80 false Neural Tube Defect (Meningomyelocele, Spina Bifi da, Or Anencephaly) false Congenital Heart Defect false Down Syndrome false Justo-Sachs (eg, Moravian, Cajun, Mongolian-Hong Konger) f alse Lora Disease false Sickle Cell Disease Or Trait () false Hemophilia Or Other Blood Disorders false Muscular Dystrophy false Cystic Fibrosis false Windham's Chorea false Intellectual Disability/Autism false If Yes, Was Person Tested For Fragile X? false Other Inherited Genetic Or Chromosomal Disorder false Maternal Metabolic Disorder (eg, Type 1 Diabetes , PKU) false Patient Or Baby's Father Had A Child With Defects Not Listed Above false Recurrent Loss, Or A Stillbirth false Medications (including Suppl ements, Vitamins, Herbs, OTC Drugs), Illicit/Recreational Drugs, Alcohol false If Yes, Agent(s) And Strength/Dosage false Any Other Genetic History false Live With Someone With TB Or Exposed To TB false Patient Or Partner Has History Of Genital Herpes false Rash Or Viral Illness Since Last Menstrual Perio d false History Of STD, Gonorrhea, Chlamydia, HPV, Syphi lis true chlam Other Infection History false History of HIV false History of Hepatitis false Prior GBS-infected child false Hemoglobinopathy Or Carrier false Other Structural Defect false Recent Travel History Outside of Country false Delivery Information Delivery Date Delivery Type Labor Anesthesia Weeks Gestation Incision Type Labor Labor Length Hrs Delivered By Post Complications Tubal Sterilization Discharge Date Comments 3 Induce d [facility] 37.2 Low Transvers e true Stevie Rehman MD Pre eclampsia Discharge Information Feeding Method Contraceptive Method Maternal HG B and HCT Levels
--- NOTE | 2025-02-14 12:14 | WPDANESEPPF ---
Anes - Initial Pre Proc Eval Procedure: Operation Date: 02/14/25 13:30 Proposed Procedures p Laparoscopic Left Ovarian Cystectomy - Stevie Rehman MD Date/Time: 02/14/25 12:14 Surgeon: Stevie Rehman MD Pre Op Diagnosis: left ovarian cyst Patient Data Age: 24 Gender: F Height: 1.65 m Weight: 73.6 kg Allergies Allergy/AdvReac Type Severity Reaction Status Date / Time No Known Allergies Allergy Verified 02/14/25 11:34 Home Medications ?Medication ?Instructions ?Recorded ?Confirmed ?Type ondansetron 4 mg disintegrating 4 mg PO Q8H PRN nausea and 03/26/23 03/27/23 Rx tablet vomiting #20 tabs doxycycline hyclate 100 mg capsule 100 mg PO BID 03/27/23 03/27/23 History sertraline 100 mg tablet 100 mg PO DAILY 03/27/23 02/14/25 History escitalopram oxalate 10 mg tablet 10 mg PO HS 02/12/25 02/14/25 History lisdexamfetamine 20 mg capsule 20 mg PO DAILY 02/12/25 02/12/25 History multivitamin (Daily Multi-Vitamin 1 tablet PO DAILY 02/12/25 02/14/25 History tablet) norethindrone 1.5 mg-ethinyl 1 tablet PO DAILY 02/12/25 02/14/25 History estradiol 30 mcg(21)/iron 75 mg(7) tablet (Negin Fe 1.5/30 (28)) Patient hx anesthesia problems: none Family hx anesthesia problems: none Results Review: All pre-operative results and documents have been reviewed as part of the pre-operative evaluation. [facility] Past Medical History Medical History Depression Anxiety Scoliosis Overweight (BMI 25.0-29.9) and not yet delivered Preeclampsia No acute medical problems Family History Family History Grandparent Diabetes mellitus Other No active medical problems Social History Social History Smoking packs per day: 1 Smoking cigarettes per day: 20.0 Years smoked: 4 Smoking pack-years: 4.00 Smoking status: Former smoker Tobacco type: cigarettes and e-cigarettes/vaping Smoking end date: 02/12/21 Alcohol intake: current Substance use: never Substance use type: does not use Lack of Transportation: No Lack of Food: Never True Current Housing: I Have Housing Concerned About Future Housing: No Difficulty Paying Gas/Electric Bills: No Difficulty Paying for Meds: No Currently Unemployed: YES Education: High School Diploma/GED Difficulty w/ Childcare or Family Care: No Living arrangements: with family Spiritual care concerns: No Anes - Eval Final PreProcedure Day of Procedure 02/14/25 12:14 Patient weight: overweight Heart: regular rate and rhythm Lungs: clear to auscultation Airway: Mallampati scale class II Neurological: alert and oriented ASA classification: III Emergent: no Anesthetic plan: proceed Anesthesia type and monitoring: general ETT and standard monitoring Results Review: All pre-operative results and documents have been reviewed as part of the pre-operative evaluation. Informed Consent: The patient's anesthetic plan and its attendant risks and benefits were discussed with the patient/family/POA. Questions were solicited and answers provided to the satisfaction of the patient/family/POA.
[2025-02-14] MEDS: LACTATED RINGERS 1,000 ML 30 ML IV CONT (12:15)
[2025-02-14] MEDS: ACETAMINOPHEN 500 MG TABLET 1000 MG PO (12:22)
[2025-02-14] MEDS: KETOROLAC 15 MG/ML VIAL (*BKC) IV PUSH (12:22)
[2025-02-14] MEDS: SCOPOLAMINE 1 MG PATCH 1 PATCH TRANSDERM (12:30)
[2025-02-14 12:38] LABS: BEDSIDEPREGUCG Negative (Negative)
--- NOTE | 2025-02-14 12:40 | WPDHPUPDATE1 ---
History and Physical Update Update Date/Time: 02/14/25 12:40 History and Physical has been reviewed, including an updated exam of the patient. There are NO changes in the patient's condition. Risks, benefits, and alternatives have been discussed and questions answered. Patient agrees to proceed with procedure.
--- NOTE | 2025-02-14 14:23 | W.PM.PROC2 ---
Procedure Note - Detailed Date of Procedure 02/14/25 Pre-op Diagnosis left ovarian cyst, pelvic pain Post-op Diagnosis Same Procedure Performed Diagnostic laparoscopy, lysis of adhesions-20 minutes, left ovarian cystectomy. Surgeon Stevie Rehman MD Anesthesia General Indications Pelvic pain Findings Hemoperitoneum. Pelvic adhesions, adhesions between the left fundus of the uterus and the anterior pelvic wall under considerable tension. Some adhesions between the right adnexa and uterus to the right pelvic sidewall. Uterus overall under significant tension. Collection of small left ovarian cyst. Description of Procedure The patient was taken to the operating room. She was prepped and draped in the dorsal lithotomy position after induction general anesthesia. A 5 mm incision was made with a scalpel on the abdominal skin in the left upper quadrant of the abdomen. A 5 mm trocar was inserted into the intra-abdominal cavity under direct visualization the scope. In the same fashion a 5 mm left lower quadrant trocar was inserted and a 5 mm infraumbilical trocar was inserted. Dense adhesions between anterior uterus and anterior pelvic sidewall was lysed LigaSure cautery. Adhesiolysis on the right side of the issues also using LigaSure cautery. Left ovarian cyst underwent lysis ovarian cysts or ovarian cystectomy. Hemoperitoneum was irrigated and were evacuated. The pelvis was irrigated. The pneumoperitoneum was reduced. The trocars were removed. Skin was closed with subcuticular 4 micro. The patient's incisions were covered with Dermabond. She was taken recovery room in stable condition. Sponge lap and needle counts were correct x2. Estimated Blood Loss 30 Pathology None sent Complications No immediate complications Condition Stable Disposition Same day
[2025-02-14] MEDS: fentaNYL CITRATE INJ (*CRX) 100 MCG/2 ML VIAL 25 MCG IV PUSH ×2 (15:02→15:05)
[2025-02-14] MEDS: ONDANSETRON INJ 4 MG/2 ML VIAL IV PUSH ×2 (15:02→15:07)
[2025-02-14] MEDS: oxyCODONE HCL (*CRX) 5 MG TAB IR PO (16:14)
== END 2025-02-14 16:53 | disposition home or self-care (01) ==
PROVIDERS: PCP Hospitalist; Visit Provider Obstetrics & Gynecology
PROC: (CPT 49320; principal; 2025-02-14 13:30)
DX: N83.292 Other ovarian cyst, left side (principal); N73.6 Female pelvic peritoneal adhesions (postinfective); G89.18 Other acute postprocedural pain; F41.9 Anxiety disorder, unspecified; F32.A Depression, unspecified; M41.9 Scoliosis, unspecified; Z98.890 Other specified postprocedural states; Z87.891 Personal history of nicotine dependence
CPT/HCPCS: 58662; A9270; J1100; J1885; J2003; J2250; J2405; J2704; J3010; J7030; J7120